=== PATIENT | female | born 1940 | race Caucasian/White ===

== ENCOUNTER 2017-12-05 13:56 | Outpatient (CLI) | payer MEDICARE | END 2017-12-05 13:57 | disposition home or self-care (01) | LOC: BICULT 13:56 | PROVIDERS: ATTEND Family Medicine | DX: E07.9 Disorder of thyroid, unspecified (principal); E04.1 Nontoxic single thyroid nodule | CPT/HCPCS: 36415; 76536; 80048; 83970; 84436; 84443; 84479 ==

== ENCOUNTER 2018-03-10 11:50 | Inpatient (IN) | payer MEDICARE ==
--- NOTE | 2018-03-10 13:11 | CT ---
CT BRAIN: HISTORY: Fall. Head trauma. COMPARISON: 09/16/2015 TECHNIQUE: Axial images are obtained with brain and bone windows obtained. FINDINGS: CT images of the brain demonstrate interval increasing opacification of the right maxillary sinus. E xtensive mucosal disease is present. No evidence of acute fractures or bony lesions seen. The other paranasal sinuses are well aerated. The brain demonstrates no evidence of masses or lesions. No evidence of calvarial fractures seen. N o evidence of acute hemorrhage is seen. Old area of stroke seen in the right basal ganglion. IMPRESSION: 1. Right increasing maxillary sinus disease. 2. No evidence of acute intracranial pathology or significant trauma seen. POS: [facility]
--- NOTE | 2018-03-10 13:12 | CT ---
CT CERVICAL SPINE: HISTORY: Fall with neck pain. TECHNIQUE: Axial images are obtained with coronal and sagittal reconstructions. FINDINGS: CT images of the cervical spine demonstrate disk space height loss with vacuum disk changes seen at t he C5-C6 level. Moderate bilateral C4-C5 and C5-C6 neural foraminal narrowing is seen, due to uncove rtebral osteophyte encroachment. No evidence of acute cervical spine fracture is seen. Bilateral carotid endarterectomy changes and surgical clips seen. Some heterogeneity is seen in the left thyroid lobe. Correlate with thyroid sonography. The patient had a previous thyroid sonogram on 12/05/2017. IMPRESSION: No evidence of acute cervical spine fracture seen. POS: [facility]
[2018-03-10] MEDS ORDERED: Promethazine HCl 25 MG/ML VIAL ONE (13:14)
[2018-03-10] MEDS ORDERED: Morphine 2 MG/ML SYRINGE ONE ×2 (13:21→15:18)
[2018-03-10] MEDS ORDERED: Ondansetron PF 4 MG/2 ML Vial IV PRN (13:31)
--- NOTE | 2018-03-10 13:37 | RAD ---
AP PELVIS: HISTORY: Fall. Leg pain. FINDINGS: AP view pelvis is obtained and demonstrates a subcapital type left femoral neck fracture. There is s light lateral angulation of the distal fracture fragment. IMPRESSION: Acute left femoral neck fracture. POS: [facility]
--- NOTE | 2018-03-10 13:37 | RAD ---
SINGLE VIEW CHEST: Date: 03/10/18 COMPARISON: 08/07/16. HISTORY: Fall this morning with left leg pain. Preoperative radiograph for left femoral neck fracture. FINDINGS: Single view of the chest shows normal sized cardiomediastinal silhouette. The patient is status post CABG. There is no evidence of consolidation, mass, or pleural effusion. Degenerative changes are seen in the spine. IMPRESSION: No evidence of acute cardiopulmonary disease. POS: [facility]
--- NOTE | 2018-03-10 13:38 | RAD ---
LEFT HIP TWO VIEWS: HISTORY: Fall. TECHNIQUE: AP and lateral views of the left hip are obtained. FINDINGS: Images demonstrate an acute left femoral neck fracture, with slight lateral displacement of the dista l fracture fragment. IMPRESSION: Acute left femoral neck fracture. POS: [facility]
[2018-03-10] MEDS ORDERED: TETANUS AND DIPHTHERIA TOX/PF 0.5 ML DISP.SYRIN IM SCH (13:45)
[2018-03-10] MEDS ORDERED: Communication Order-Pharmacy FS SCH (13:45)
[2018-03-10] MEDS ORDERED: Clindamycin/D5W 900 MG in Premix Bag 1 BAG IVPB SCH (13:45)
[2018-03-10 13:52] LABS: Bilirubin Negative (Negative); Blood, Urine Negative (Negative); Clarity CLEAR (Clear); Glucose, Urine (Dipstick) Negative (Negative); Leukocyte Negative (Negative); Nitrite Negative (Negative); Protein, Urine (Dipstick) Negative (Neg-Trace); Specific Gravity, Urine 1.013 (1.002-1.036)
[2018-03-10 13:57] LABS: #Eosinphils 0.1 thou/uL (0.0-0.7); #Lymphocytes 0.6 thou/uL (1.20-3.40); #Monocytes 0.4 thou/uL (0.11-0.59); #Neutrophils 8.8 thou/uL (1.40-6.50); %Basophils 0.3 % (0.0-1.0); %Eosinophils 0.6 % (0.0-10.0); %Lymphocytes 6.2 % (21.0-51.0); %Monocytes 3.8 % (0.0-10.0); %Neutrophils 89.1 % (42.0-75.0); Hemoglobin 12.8 g/dL (12.0-16.0); Mean Corpuscular HGB CONC 32.8 g/dL (32.0-36.0); Mean Corpuscular Hemoglobin 30.6 pg (27.0-31.0); Mean Corpuscular Volume 93.2 fL (78.0-98.0); Mean Platelet Volume 7.6 fL (7.4-10.4); Platelet Count 178 thou/uL (130-400); RBC Distribution Width 12.7 % (11.5-14.5); Red Blood Cell (RBC) Count 4.19 mill/uL (4.20-5.40); White Blood Cell (WBC) Count 9.8 thou/uL (4.8-10.8)
--- NOTE | 2018-03-10 14:12 | CON ---
DATE OF CONSULTATION: 03/10/2018 REQUESTING PHYSICIAN: Trauma Services. CONSULTING PHYSICIAN: Dr. Hipolito Arambula. REASON FOR CONSULTATION: Left hip fracture. HISTORY OF PRESENT ILLNESS: This is a 77-year-old female, who was in [place], watching promotion of her son to [employer] when she tripped and fell. Fall was mechanical. The patient states that she was going up 2 steps and she felt that her knee gave out. She landed on her left side. She complained of left hip pain. She proceed to stay at the event; however, family pushed her on in a wheelchair before getting in a car and driving back to the [facility] area, so that her care could be provided at her hometown hospital. The patient states the pain is worse upon movement and somewhat relieved by rest as well as pain medication. No numbness or tingling distally. She did complain of some left knee pain. She takes aspirin. No significant loss of consciousness. She was unable to bear weight. PAST MEDICAL HISTORY: Significant for hypertension, coronary artery disease, hyperlipidemia, TIA. PAST SURGICAL HISTORY: Significant for tonsillectomy, bladder lift, coronary artery bypass graft x6 in 2007, cholecystectomy, hysterectomy, bilateral carotid endarterectomy. SOCIAL HISTORY: The patient denies any alcohol or drug use. She is a former smoker. She quit in 2002. She does live at home with her spouse here in the [facility]. FAMILY HISTORY: Reviewed and noncontributory. REVIEW OF SYSTEMS: Conducted and otherwise negative except for as stated above. PHYSICAL EXAMINATION: VITAL SIGNS: Include blood pressure of 186/93, pulse of 97, respiratory rate of 19, and a temperature of 98.1 degrees. GENERAL: The patient is awake and alert. She is mildly uncomfortable secondary to her fall. Family is at bedside. She is pleasant and cooperative with the exam today. She is oriented x3. HEENT: Head is normocephalic and atraumatic. NECK: Supple. CARDIOVASCULAR: Regular rate and rhythm with a 3/5 systolic ejection murmur. LUNGS: Clear to auscultation bilaterally. EXTREMITIES: The left lower extremity is externally rotated. Distal neurovascular status is intact. Skin is intact. DIAGNOSTIC STUDIES: IMAGING STUDIES: Radiographic findings including 2 views of the left hip demonstrate a subcapital femoral neck fracture with slight impaction. These findings were reviewed with Dr. Arambula. ASSESSMENT: Left hip subcapital femoral neck fracture. PLAN: At this point, we will allow the patient to eat today. We did discuss surgical intervention including a left hip hemiarthroplasty for her fracture. Due to her significant cardiac history, we will have Dr. Tejeda or the manager of transportation on-call to see the patient for presurgical clearance. Risks, benefits, and alternatives were discussed with the patient and her today. These include, but are not limited to, bleeding, infection, and neurovascular injury. We will plan to go forward with surgery tomorrow. They are amenable to this plan of care. She will be n.p.o. after midnight. Job ID: [id number]
[2018-03-10 14:22] LABS: ALT (SGPT) 19 U/L (8-55); Albumin 4.2 g/dL (3.4-4.8); Alkaline Phosphatase 74 U/L (40-150); BUN (Urea Nitrogen) 26 mg/dL (9.8-20.1); Bilirubin, Total 0.7 mg/dL (0.2-1.2); Calc. Creatinine Clearance 0 mL/min (70-130); Calcium 10.2 mg/dL (7.8-10.44); Carbon Dioxide 24 mmol/L (23-31); Chloride 102 mmol/L (98-107); Estimated GFR-MDRD 37; Glucose 114 mg/dL (83-110); Sodium 138 mmol/L (136-145)
[2018-03-10 14:51] LABS: AST (SGOT) 22 U/L (5-34); Globulin 3.6 g/dL (2.4-3.5); Potassium 3.6 mmol/L (3.5-5.1); Protein, Total 7.8 g/dL (6.0-8.3)
[2018-03-10 14:53] LABS: Anion Gap 16 mmol/L (10-20)
[2018-03-10 16:24] VITALS: BMI 29.0
[2018-03-10] MEDS ORDERED: Temazepam 15 MG CAP PO PRN (17:07)
[2018-03-10] MEDS: traMADol HCl 50 MG TAB PO PRN (17:24)
--- NOTE | 2018-03-10 17:50 | HP ---
HISTORY OF PRESENT ILLNESS: Ms. Will sustained a fall today in [place] at her son's [employer] promotion. She was having severe left hip pain. However, she wanted to come back to town here for further workup including hospitalization. She is found to have left hip fracture. She notes a moderate amount of pain, but actually feels better now that she is in her room. She denies loss of consciousness. She said she had a swelling to her left forehead that is now improved as well as one to her right knee that feels better now. Denies sensory motor loss to either lower extremity. PAST MEDICAL HISTORY: Includes hypertension, coronary artery disease, hyperlipidemia, peripheral vascular disease. PAST SURGICAL HISTORY: Includes CABG, bilateral carotid artery surgery, tonsillectomy, cholecystectomy. SOCIAL HISTORY: She is a former smoker. It has been 40 years. No alcohol. Lives at home with her here in [facility]. REVIEW OF SYSTEMS: Otherwise negative unless described above. ALLERGIES: TO PENICILLIN AND ACETAMINOPHEN. MEDICATIONS: Taken at home include carvedilol, pravastatin, thyroid, folic acid, Multaq, hydralazine, temazepam, Catapres, nifedipine, colestipol, valsartan, vitamin D, vitamin B, and aspirin 325 a day. REVIEW OF SYSTEMS: A 10-system review of systems is otherwise negative unless described above. PHYSICAL EXAMINATION: VITAL SIGNS: Pulse 102, blood pressure is 181/75, respirations are 18. HEENT: No orofacial, craniofacial trauma. Oropharynx clear. NECK: No lymphadenopathy or pain. CHEST: Clear. HEART: Regular rate and rhythm. No chest trauma. ABDOMEN: Soft, nontender. No abdominal tenderness. Pelvis is stable. EXTREMITIES: No significant lower extremity edema, deformity, or trauma. Peripheral pulses are palpable. LABORATORY DATA: White cell count is 9, hemoglobin 12, platelet count is 178. Sodium 138, potassium 3.6, creatinine 1.38. ASSESSMENT: Left femoral neck fracture. PLAN: 1. ORIF tomorrow. 2. Coronary artery disease. Dr. Tejeda to see today for any further workup for cardiac clearance. The trauma team will follow. Job ID: [id number]
--- NOTE | 2018-03-10 20:18 | CON ---
DATE OF CONSULTATION: REASON FOR CONSULTATION: Preoperative clearance. HISTORY OF PRESENT ILLNESS: Ms. Will is a very pleasant 77-year-old woman, I have seen and managed in the past. Her primary provider is Dr. Nico Velasquez. She had a previous history of CAD, status post bypass surgery x6 in 2002. She last underwent carotid endarterectomy in 2012. Her last stress study that was performed in 2012 was well. She recently was walking upstairs and fell. No syncope or presyncope present. She lost her balance. She broke her left hip. She denies chest pain, pressure, or other associated symptoms. Last echo performed in our office dated April 2017 with an LVEF of 55% to 60%, [id number] MR, moderate AI, and moderate TR present. Right ventricular systolic pressures were elevated. PAST MEDICAL HISTORY: CAD, status post bypass surgery in 2002; carotid disease, status post carotid endarterectomy; hyperlipidemia; hypertension; cholecystectomy; hysterectomy; chronic kidney disease; CVA; tonsillectomy; paroxysmal atrial fibrillation. Last stress test dated 08/08/2016 with no significant areas of ischemia with LVEF of 70%. SOCIAL HISTORY: No current tobacco or alcohol use. HOME MEDICATIONS: Include; 1. Pravastatin. 2. Multaq. 3. Colestid. 4. Carvedilol. 5. B12. 6. Aspirin. 7. Hydralazine. 8. Clonidine. 9. Thyroid. 10. Restoril. 11. Nifedipine. 12. Folic acid. REVIEW OF SYSTEMS: A 10-system review of systems reviewed and is otherwise negative. PHYSICAL EXAMINATION: GENERAL: Patient is a pleasant woman, who is in no acute distress. The patient appears their stated age. VITAL SIGNS: Blood pressure 181/75, pulse 102, temperature 98. NEUROLOGIC: The patient is alert and oriented x3 with no focal neurologic deficits. HEENT: Sclerae without icterus. Mouth has moist mucous membranes with normal pallor. NECK: No JVD. Carotid upstroke brisk. No bruits bilaterally. LUNGS: Clear to auscultation with unlabored respirations. BACK: No scoliosis or kyphosis. CARDIAC: 2/6 systolic ejection murmur. ABDOMEN: Soft, nontender, nondistended. No peritoneal signs present. No hepatosplenomegaly. No abnormal striae. EXTREMITIES: 2+ femoral and 2+ dorsalis pedis pulses. No cyanosis, clubbing, or edema. SKIN: No gross abnormalities. PERTINENT LABORATORY DATA: Hemoglobin 12.8. Creatinine 1.38 with a GFR of 37. IMPRESSION: 1. Preoperative clearance. 2. Coronary artery disease. 3. Status post bypass surgery. 4. Murmur. RECOMMENDATIONS: At this point, Ms. Will is currently on a beta-haja therapy and would continue. She is on 25 mg metoprolol b.i.d. She is also on clonidine and nifedipine for blood pressure management. At this point, we would recommend managing her pulse pressure product aggressively. We will keep her pulse pressure product down. Her last stress test was last year with no ischemia. She does have a history of paroxysmal atrial fibrillation, but appears to be rate controlled. I feel Ms. Will is at low risk for complications. If her LVEF is unchanged with no significant valvular stenosis, would clear for surgery. Job ID: [id number]
[2018-03-10] MEDS: Pravastatin Sodium 40 MG TAB PO SCH (20:31)
[2018-03-10] MEDS: hydrALAZINE 25 MG TAB PO SCH (20:31)
[2018-03-10] MEDS: Fentanyl 100 MCG/2 ML VIAL SLOW IVP PRN ×2 (20:32→23:59)
[2018-03-10] MEDS: Carvedilol 25 MG TAB PO SCH (20:32)
[2018-03-10] MEDS: NIFEdipine XL 60 MG TAB PO SCH (20:32)
[2018-03-11] MEDS: Sodium Chloride 0.9% 1,000 ML IV SCH ×3 (00:11→21:29)
[2018-03-11] MEDS: Fentanyl 100 MCG/2 ML VIAL SLOW IVP PRN ×3 (03:41→09:07)
[2018-03-11 06:54] LABS: #Eosinphils 0.2 thou/uL (0.0-0.7); #Lymphocytes 0.8 thou/uL (1.20-3.40); #Monocytes 0.5 thou/uL (0.11-0.59); #Neutrophils 7.2 thou/uL (1.40-6.50); %Basophils 0.3 % (0.0-1.0); %Eosinophils 2.2 % (0.0-10.0); %Lymphocytes 8.9 % (21.0-51.0); %Monocytes 6.1 % (0.0-10.0); %Neutrophils 82.6 % (42.0-75.0); Hemoglobin 11.2 g/dL (12.0-16.0); Mean Corpuscular HGB CONC 32.3 g/dL (32.0-36.0); Mean Corpuscular Hemoglobin 29.7 pg (27.0-31.0); Mean Platelet Volume 7.4 fL (7.4-10.4); Platelet Count 162 thou/uL (130-400); RBC Distribution Width 12.6 % (11.5-14.5); Red Blood Cell (RBC) Count 3.75 mill/uL (4.20-5.40); White Blood Cell (WBC) Count 8.7 thou/uL (4.8-10.8)
--- NOTE | 2018-03-11 07:09 | PDOC.CTH ---
Cardiology Progress Note - Objective Vital Signs Temp Pulse Resp BP BP Pulse Ox 03/11/18 04:19 98.8 F 88 22 H 143/71 H 93 L 03/11/18 00:06 99.8 F H 89 19 142/66 H 94 L 03/10/18 20:32 94 162/66 H 03/10/18 20:31 94 162/66 H 03/10/18 20:27 98.5 F 94 20 162/66 H 94 L 03/10/18 20:00 94 L Weight 185 lb 3.013 oz 03/10/18 03/11/18 03/12/18 06:59 06:59 06:59 Intake Total 980 Output Total 1300 Balance -320 - Physical Examination General/Neuro: alert & oriented x3, NAD Neck: carotid US brisk, no JVD present Lungs: unlabored respirations Heart: PMI normal, RRR Abdomen: NT/ND, soft Extremities: + femoral B - Labs Result Diagrams: 03/11/18 06:38 03/10/18 13:44 - Assessment/Plan PAF Murmur CAD s/p CABG echo pending If no significant valvular stenosis, proceed with surgery. Pt with stress test performed one yr ago without ischemia.
[2018-03-11 07:14] LABS: ALT (SGPT) 18 U/L (8-55); AST (SGOT) 24 U/L (5-34); Albumin 3.6 g/dL (3.4-4.8); Alkaline Phosphatase 72 U/L (40-150); Anion Gap 12 mmol/L (10-20); BUN (Urea Nitrogen) 20 mg/dL (9.8-20.1); Calc. Creatinine Clearance 50 mL/min (70-130); Carbon Dioxide 28 mmol/L (23-31); Chloride 101 mmol/L (98-107); Estimated GFR-MDRD 41; Globulin 3.2 g/dL (2.4-3.5); Glucose 99 mg/dL (83-110); Potassium 3.2 mmol/L (3.5-5.1); Protein, Total 6.8 g/dL (6.0-8.3); Sodium 138 mmol/L (136-145)
[2018-03-11] MEDS ORDERED: Clopidogrel Bisulfate 75 MG TAB ONE (07:45)
[2018-03-11] MEDS: Carvedilol 25 MG TAB PO SCH ×2 (08:06→21:36)
[2018-03-11] MEDS: traMADol HCl 50 MG TAB PO PRN ×3 (08:07→21:44)
[2018-03-11] MEDS: Dronedarone HCl 400 MG TAB PO SCH ×2 (08:07→18:34)
[2018-03-11] MEDS: Folic Acid 1 MG TAB PO SCH (09:02)
[2018-03-11] MEDS: hydrALAZINE 25 MG TAB PO SCH ×3 (09:03→21:35)
[2018-03-11] MEDS ORDERED: Clindamycin/D5W 900 mg/50 ml Premix Bag ONE (11:08)
[2018-03-11] MEDS ORDERED: Midazolam HCl 2 mg/2 ml Vial ONE (12:18)
[2018-03-11] MEDS ORDERED: Fentanyl 100 MCG/2 ML VIAL ONE ×2 (12:19→16:01)
[2018-03-11] MEDS ORDERED: Dexamethasone 4 mg/ml Vial ONE (12:19)
[2018-03-11] MEDS ORDERED: Phenylephrine HCL 10 MG/ML VIAL ONE (16:04)
[2018-03-11] MEDS ORDERED: Bupivacaine HCl 0.5%/Epinephrine 1:200,000/PF 30 ml Vial ONE (16:21)
[2018-03-11] MEDS ORDERED: Meperidine HCl/PF 25 MG/ML VIAL SLOW IVP PRN (16:56)
[2018-03-11] MEDS ORDERED: PACU-Morphine 4MG/ML VIAL SLOW IVP PRN (16:56)
[2018-03-11] MEDS ORDERED: Promethazine HCl 25 MG/ML VIAL SLOW IVP PRN ×2 (16:56→17:28)
[2018-03-11] MEDS ORDERED: Promethazine HCl 25 MG/ML VIAL IM PRN ×2 (16:56→17:28)
[2018-03-11] MEDS ORDERED: PROPOFOL 200 MG/20 ML VIAL ONE (17:07)
[2018-03-11] MEDS ORDERED: Ondansetron PF 4 MG/2 ML Vial ONE (17:07)
[2018-03-11] MEDS ORDERED: PHENYLEPHRINE-NS 100 MCG/ML 10 ML SYRINGE ONE (17:07)
[2018-03-11] MEDS ORDERED: Lidocaine 1% PF 5 ML VIAL ONE (17:07)
[2018-03-11] MEDS ORDERED: Glycopyrrolate 0.2 MG/ML 5 ML SYRINGE ONE (17:07)
[2018-03-11] MEDS ORDERED: Dexamethasone 20 MG/5 ML VIAL ONE (17:07)
[2018-03-11] MEDS ORDERED: Ondansetron HCl/PF 4 MG/2 ML Vial IVP PRN (17:28)
[2018-03-11] MEDS ORDERED: Morphine Sulfate 2 MG/ML SYRINGE SLOW IVP PRN (17:28)
--- NOTE | 2018-03-11 17:56 | PRG ---
DATE OF SERVICE: 03/11/2018 SUBJECTIVE: The patient is resting comfortably in bed this morning. The patient only complains of continued left hip pain, though she reports moderate control of her pain. No other complaints at this time. OBJECTIVE: VITAL SIGNS: Blood pressure 134/65, pulse 84, respirations 18, O2 saturation 91 on room air, temperature 98.6. GENERAL: Alert and awake. No acute distress. HEENT: EOMI. Moist mucosal membranes. NECK: Trachea midline. PULMONARY: Equal chest rise. No cyanosis. CARDIOVASCULAR: Regular rate. No edema. NEUROLOGIC: No acute focal deficits. LABORATORY FINDINGS: White blood cell count 8.7, hemoglobin 11.2, hematocrit 34.5. Sodium 138, potassium 3.2, BUN 20, creatinine 1.26. ASSESSMENT: Left femoral neck fracture. PLAN: Cardiology plans for echocardiography today and anticipates cardiac clearance for ORIF today. We will plan for surgery and postop support including adequate pain control, etc. This patient was seen and evaluated by Dr. Solis on morning rounds. The patient verbalized understanding and agreement with plan. Job ID: [id number]
--- NOTE | 2018-03-11 18:59 | RAD ---
AP PELVIS: 03/11/18 HISTORY: Postop. Pelvic ring is intact. The bones are demineralized. Postoperative changes of the left hip are noted w ith left hip prosthesis present. The femoral stem is not entirely visualized on this exam. IMPRESSION: 1. Arthritic changes of the lower lumbar spine. 2. Atherosclerosis. 3. Placement of a left hip prosthesis incompletely visualized on this single view. POS: [facility]
--- NOTE | 2018-03-11 19:00 | RAD ---
LEFT HIP ONE VIEW LATERAL: 03/11/18 HISTORY: Postop. A total hip prosthesis is in good position. No signs of fracture. IMPRESSION: Placement of a total hip prosthesis. POS: [facility]
[2018-03-11] MEDS: Clindamycin/D5W 900 MG in Premix Bag 1 BAG IVPB SCH (21:00)
[2018-03-11] MEDS ORDERED: Aspirin 81 mg Enteric Coated Tablet PO SCH (21:00)
[2018-03-11] MEDS: NIFEdipine XL 60 MG TAB PO SCH (21:31)
[2018-03-11] MEDS: Enoxaparin Sodium 40 MG/0.4 ML SYRINGE SC SCH (21:36)
[2018-03-11] MEDS: Pravastatin Sodium 40 MG TAB PO SCH (21:36)
--- NOTE | 2018-03-12 01:09 | OP ---
DATE OF PROCEDURE: 03/11/2018 PROCEDURE PERFORMED: Left hip hemiarthroplasty. PREOPERATIVE DIAGNOSIS: Left femoral neck fracture. POSTOPERATIVE DIAGNOSIS: Left femoral neck fracture. COMPLICATIONS: None. ESTIMATED BLOOD LOSS: 150 mL. VEGETABLE HARVEST MACHINE OPERATOR: Michelle Oviedo PA-C IMPLANTS: DePuy Butts Basic press-fit stem size 6, bipolar head size 46 mm; +5, 28 mm femoral head. INDICATIONS FOR PROCEDURE: Ms. Will is a 77-year-old female who fell. She fractured her left femoral neck. She had a displaced fracture that was amenable to hemiarthroplasty. We reviewed risk and benefits. We reviewed surgical options. She elected to proceed. DESCRIPTION OF PROCEDURE: Ms. Will was identified in the preoperative holding area. Her correct extremity was marked. She was carried to the operating room. She was positioned supine. General anesthesia was induced. A multidisciplinary time-out was performed. The left lower extremity was prepped and draped in sterile fashion. We began the procedure with posterior approach to the hip. We dissected down through the subcutaneous tissues to the fascia, which was opened. We exposed the underlying short external rotators. We subperiosteally divided the piriformis from the proximal femur. We performed a capsulotomy as well. We exposed the underlying femoral neck fracture. We removed the femoral head. At this point, we performed a new osteotomy with an oscillating saw. We then prepped the femur with a rasp, followed by a broach up to a size 6; this gave a stable fit. We trialed off this. A +5 femoral head was appropriate for length. At this point, we removed trial components. We impacted our final stem and bipolar shell with femoral head. We reduced the hip once more, checked stability, it was very stable throughout our arc of motion. At this point, after thorough irrigation, we closed the capsule as well as the piriformis tendon with #5 Ethibond suture through drill holes in the trochanter. We then closed the remaining tissues with #2 Vicryl suture, 2-0 Vicryl suture and yuli for the skin, and a sterile dressing was applied. Job ID: [id number]
[2018-03-12] MEDS: Clindamycin/D5W 900 MG in Premix Bag 1 BAG IVPB SCH (05:00)
[2018-03-12] MEDS ORDERED: traMADol HCl 50 MG TAB PO PRN (08:19)
[2018-03-12] MEDS ORDERED: Ketorolac Tromethamine 30 MG/ML VIAL IVP PRN (08:19)
[2018-03-12] MEDS: Dronedarone HCl 400 MG TAB PO SCH ×2 (08:42→17:27)
[2018-03-12] MEDS: Folic Acid 1 MG TAB PO SCH (08:42)
[2018-03-12] MEDS: Carvedilol 25 MG TAB PO SCH ×2 (08:42→19:49)
[2018-03-12] MEDS: hydrALAZINE 25 MG TAB PO SCH ×3 (08:43→19:50)
[2018-03-12] MEDS: traMADol HCl 50 MG TAB PO PRN ×2 (09:31→19:49)
--- NOTE | 2018-03-12 11:52 | PRG ---
DATE OF SERVICE: 03/12/2018 SUBJECTIVE: The patient is resting comfortably in bed this morning. Reports good pain control and has no concerns or complaints at this time. OBJECTIVE: VITAL SIGNS: Blood pressure is 99/63, pulse is 70, respirations 18, pulse ox is 93 on room air, and temperature is 97.8. GENERAL: Alert and awake, no acute distress. HEENT: EOMI. Moist mucosal membranes. NECK: Trachea midline. PULMONARY: Equal chest rise. No cyanosis. Clear to auscultation bilaterally. CARDIOVASCULAR: Regular rate and rhythm. No edema. NEUROLOGIC: No focal deficits. LABORATORY FINDINGS: There are no new laboratory data today. ASSESSMENT: Left femoral neck fracture status post hemiarthroplasty day 1. PLAN: We will continue with pain control and to have patient working with physical therapy and occupational therapy. We will put in for rehab screen today and start for discharge planning. We will also start bowel regimen for constipation prophylaxis. Job ID: [id number]
[2018-03-12] MEDS: Sodium Chloride 0.9% 1,000 ML IV SCH (15:02)
[2018-03-12] MEDS: Calcium Carbonate 500 MG ChewTAB PO PRN (17:27)
[2018-03-12] MEDS: Enoxaparin Sodium 40 MG/0.4 ML SYRINGE SC SCH (19:47)
[2018-03-12] MEDS: NIFEdipine XL 60 MG TAB PO SCH (19:47)
[2018-03-12] MEDS: Pravastatin Sodium 40 MG TAB PO SCH (19:48)
[2018-03-12] MEDS: Famotidine 20 MG TAB PO SCH (19:48)
[2018-03-12] MEDS: Senokot 8.6 MG TAB PO SCH (19:48)
[2018-03-13] MEDS: Sodium Chloride 0.9% 1,000 ML IV SCH (06:33)
[2018-03-13] MEDS: Calcium Carbonate 500 MG ChewTAB PO PRN (06:52)
[2018-03-13] MEDS: Folic Acid 1 MG TAB PO SCH (08:49)
[2018-03-13] MEDS: Carvedilol 25 MG TAB PO SCH (08:49)
[2018-03-13] MEDS: Senokot 8.6 MG TAB PO SCH ×2 (08:49→22:04)
[2018-03-13] MEDS: Dronedarone HCl 400 MG TAB PO SCH ×2 (08:49→16:46)
[2018-03-13] MEDS: Polyethylene Glycol 3350 17 GM Packet PO SCH (08:49)
[2018-03-13] MEDS: Famotidine 20 MG TAB PO SCH ×2 (08:49→21:29)
[2018-03-13] MEDS: hydrALAZINE 25 MG TAB PO SCH ×2 (08:53→15:49)
[2018-03-13] MEDS ORDERED: traMADol HCl 50 MG TAB PO PRN (09:16)
[2018-03-13 09:44] LABS: #Lymphocytes 0.7 thou/uL (1.20-3.40); #Monocytes 0.8 thou/uL (0.11-0.59); #Neutrophils 9.1 thou/uL (1.40-6.50); %Basophils 0.2 % (0.0-1.0); %Eosinophils 0.3 % (0.0-10.0); %Lymphocytes 6.5 % (21.0-51.0); %Monocytes 7.5 % (0.0-10.0); %Neutrophils 85.4 % (42.0-75.0); Hemoglobin 9.4 g/dL (12.0-16.0); Mean Corpuscular HGB CONC 32.4 g/dL (32.0-36.0); Mean Corpuscular Hemoglobin 30.1 pg (27.0-31.0); Mean Corpuscular Volume 92.9 fL (78.0-98.0); Mean Platelet Volume 8.1 fL (7.4-10.4); Platelet Count 178 thou/uL (130-400); RBC Distribution Width 12.6 % (11.5-14.5); Red Blood Cell (RBC) Count 3.13 mill/uL (4.20-5.40); White Blood Cell (WBC) Count 10.6 thou/uL (4.8-10.8)
[2018-03-13 10:02] LABS: Anion Gap 12 mmol/L (10-20); BUN (Urea Nitrogen) 36 mg/dL (9.8-20.1); Calc. Creatinine Clearance 55 mL/min (70-130); Calcium 8.3 mg/dL (7.8-10.44); Carbon Dioxide 25 mmol/L (23-31); Chloride 99 mmol/L (98-107); Estimated GFR-MDRD 47; Glucose 140 mg/dL (83-110); Magnesium 1.5 mg/dL (1.6-2.6); Potassium 3.4 mmol/L (3.5-5.1); Sodium 133 mmol/L (136-145)
[2018-03-13 10:22] LABS: Phosphorus 1.9 mg/dL (2.3-4.7)
[2018-03-13] MEDS: traMADol HCl 50 MG TAB PO SCH ×2 (11:12→17:47)
[2018-03-13] MEDS ORDERED: Magnesium Sulfate 3 GM in Sodium Chloride 0.9% 100 ML IVPB SCH (12:00)
[2018-03-13] MEDS ORDERED: Furosemide 20 MG/2 ML VIAL SLOW IVP SCH (12:00)
[2018-03-13] MEDS ORDERED: Potassium Phosphate 30 MMOL in Sodium Chloride 0.9% 500 ML IVPB SCH (12:00)
[2018-03-13] MEDS: Ibuprofen 600 MG TAB PO SCH ×2 (13:17→21:29)
[2018-03-13] MEDS: Pravastatin Sodium 40 MG TAB PO SCH (21:29)
[2018-03-13] MEDS: Enoxaparin Sodium 40 MG/0.4 ML SYRINGE SC SCH (21:29)
[2018-03-14] MEDS: traMADol HCl 50 MG TAB PO SCH ×4 (00:16→17:20)
[2018-03-14] MEDS: Ibuprofen 600 MG TAB PO SCH ×3 (05:50→20:45)
[2018-03-14 07:11] LABS: Anion Gap 10 mmol/L (10-20); BUN (Urea Nitrogen) 38 mg/dL (9.8-20.1); Calc. Creatinine Clearance 51 mL/min (70-130); Calcium 7.9 mg/dL (7.8-10.44); Carbon Dioxide 29 mmol/L (23-31); Chloride 103 mmol/L (98-107); Estimated GFR-MDRD 42; Glucose 91 mg/dL (83-110); Magnesium 2.3 mg/dL (1.6-2.6); Phosphorus 3.5 mg/dL (2.3-4.7); Potassium 3.9 mmol/L (3.5-5.1); Sodium 138 mmol/L (136-145)
[2018-03-14] MEDS ORDERED: cloNIDine 0.2mg/24 Hour PATCH TD SCH (09:00)
[2018-03-14] MEDS: Famotidine 20 MG TAB PO SCH ×2 (09:56→20:45)
[2018-03-14] MEDS: Carvedilol 6.25 MG TAB PO SCH ×2 (09:57→20:45)
[2018-03-14] MEDS: Folic Acid 1 MG TAB PO SCH (09:57)
[2018-03-14] MEDS: Dronedarone HCl 400 MG TAB PO SCH ×2 (09:57→17:19)
[2018-03-14] MEDS: Senokot 8.6 MG TAB PO SCH ×2 (09:58→20:42)
[2018-03-14] MEDS: Polyethylene Glycol 3350 17 GM Packet PO SCH (09:58)
--- NOTE | 2018-03-14 12:27 | EKG ---
Test Reason : Blood Pressure : / mmHG Vent. Rate : 097 BPM Atrial Rate : 097 BPM P-R Int : 204 ms QRS Dur : 120 ms QT Int : 376 ms P-R-T Axes : 071 081 073 degrees QTc Int : 477 ms Normal sinus rhythm Non-specific intra-ventricular conduction delay Nonspecific ST abnormality Abnormal ECG Confirmed by KATELYN ZAMORANO ([id number]), desk editor ROHITH BARAJAS ([id number]) on 03/14/2018 12:27:18 PM Referred By: Confirmed By:KATELYN ZAMORANO
[2018-03-14] MEDS: Enoxaparin Sodium 40 MG/0.4 ML SYRINGE SC SCH (20:45)
[2018-03-14] MEDS: Pravastatin Sodium 40 MG TAB PO SCH (20:45)
--- NOTE | 2018-03-14 20:50 | PRG ---
DATE OF SERVICE: 03/14/2018 SUBJECTIVE: 77-year-old female, status post ground-level fall, postop day 3, left femoral neck fracture. The patient is resting comfortably. States she feels much better than yesterday. There were no overnight events. Reports she had a normal bowel movement this morning. States pain is under control. The patient continues to use her incentive spirometer. Blood pressure has been well controlled overnight. OBJECTIVE: VITAL SIGNS: Temperature 97.9, pulse 63, respirations 15, O2 sat 95% on room air, blood pressure 131/68. LABORATORY DATA: Sodium 138, potassium 3.9, chloride 102, CO2 of 29. BUN 38, creatinine 1.23, glucose 91, calcium 7.9, phosphorous 3.5, magnesium 2.3. ASSESSMENT: 1. Ground-level fall. 2. Left femoral neck fracture, status post hemiarthroplasty, day 3. 3. Acute traumatic pain. PLAN: Continue pain control. Continue physical therapy and occupational therapy. We will cut back on her bowel regimen, as the patient had severe loose stools yesterday. Continue incentive spirometer. Pending placement at the [facility]; tentatively will be placed on Friday. This patient has been discussed with the attending surgeon. Job ID: [id number]
[2018-03-15] MEDS: traMADol HCl 50 MG TAB PO SCH ×5 (00:44→23:34)
[2018-03-15] MEDS: Ibuprofen 600 MG TAB PO SCH ×3 (06:30→21:41)
[2018-03-15] MEDS: Dronedarone HCl 400 MG TAB PO SCH ×2 (08:00→16:28)
[2018-03-15] MEDS: Folic Acid 1 MG TAB PO SCH (08:00)
[2018-03-15] MEDS: Carvedilol 6.25 MG TAB PO SCH ×2 (08:01→20:19)
[2018-03-15] MEDS: Aspirin 325 mg Enteric Coated Tablet PO SCH (08:01)
[2018-03-15] MEDS: Famotidine 20 MG TAB PO SCH ×2 (08:01→20:18)
[2018-03-15] MEDS: Febuxostat 40 MG TAB PO SCH (08:02)
[2018-03-15] MEDS: Polyethylene Glycol 3350 17 GM Packet PO SCH (08:03)
[2018-03-15] MEDS: Senokot 8.6 MG TAB PO SCH ×2 (08:03→20:18)
--- NOTE | 2018-03-15 17:18 | PRG ---
DATE OF SERVICE: 03/15/2018 SUBJECTIVE: This is a 77-year-old female, status post ground level fall, postop day #4, repair of left femoral neck fracture. The patient is resting comfortably at this time. The patient reports she completed physical therapy today and walked approximately 250 feet. There were no overnight events. She continues to have normal bowel movements. Pain has been under control at this time. She continues to use her incentive spirometer. Blood pressure has been on the high side overnight. OBJECTIVE: VITAL SIGNS: Blood pressure 164/70, temperature 98.4, pulse 74, SpO2 96% on room air, respirations 16. GENERAL: The patient is awake, alert, in no distress. CARDIOVASCULAR: The patient with regular rate and rhythm. No murmurs. RESPIRATORY: Chest is symmetrical. Respirations even and unlabored. No cyanosis. ABDOMEN: Soft, nontender. MUSCULOSKELETAL: The patient has good range of motion. No swelling. The patient with normal gait. NEUROLOGIC: No neuro deficits. LABORATORY DATA: There are no labs to review today. ASSESSMENT AND PLAN: 1. Ground level fall. 2. Left femoral neck fracture, status post hemiarthroplasty postop day 4. 3. Acute traumatic pain. 4. History of hypertension. PLAN: Plan is to continue pain control. Continue physical therapy. Continue incentive spirometer use. We will increase patient's home Coreg to 12.5 mg b.i.d. since blood pressure is running on the elevated side. We will restart her home Procardia if needed. Plan is for patient to be discharged to the [facility] tomorrow. This patient has been discussed with the attending surgeon. Job ID: [id number] [facility]
[2018-03-15] MEDS: Enoxaparin Sodium 40 MG/0.4 ML SYRINGE SC SCH (20:17)
[2018-03-15] MEDS: Pravastatin Sodium 40 MG TAB PO SCH (20:19)
--- NOTE | 2018-03-15 21:16 | PRG ---
DATE OF SERVICE: 03/13/2018 SUBJECTIVE: The patient is postop day #2, status post ground-level fall with a left hip fracture. The patient's pain is under control at this time and she does not have any complaints other than not having a bowel movement. She is resting comfortably at this time. OBJECTIVE: VITAL SIGNS: Blood pressure 132/70, pulse 78, respirations 16, O2 sat 93% on 2 L nasal cannula, and temperature 98.1. GENERAL: The patient is alert, in no distress. . RESPIRATORY: No use of accessory muscle. Respirations even and unlabored. No cyanosis. CARDIOVASCULAR: No edema to extremities. No murmurs. Heart rate regular. EXTREMITIES: The patient moves all extremities. The patient has normal strength and tone. NEUROLOGIC: No focal deficits. LABORATORY DATA: White blood count 10.6, RBC 3.13, hemoglobin 9.4, hematocrit 29.1. Sodium 133, potassium 3.4, BUN 36, creatinine 1.13, glucose 140, phosphorous 1.9, magnesium 1.5. ASSESSMENT: 1. Left femoral neck fracture, status post hemiarthroplasty, status post day 2 ground-level fall. 2. History of coronary artery disease. 3. History of Hypertension. 4. Acute traumatic pain. PLAN: We will schedule Ultram, discontinue fentanyl, and stop the Toradol. Discontinue IV fluids and saline lock. The patient will be placed on DVT prophylaxis with Lovenox daily. We will continue PT. We will add lactulose since the patient has not had a bowel movement. The patient has been approved for detention, but due to abnormal electrolytes, we will keep the patient another night. We will replace potassium, phosphorus, and magnesium and repeat labs in am. This patient was discussed with the attendant surgeon. ADDENDUM: I was called by the patient's nurse who reported the patient became dizzy and hypotensive during her physical therapy this afternoon. It was noted that the patient was placed on her full dose of Coreg 25 mg b.i.d. yesterday. The patient had positive orthostatic hypotension. A cortisol level was obtained with the reading of 19. Nurse reports once the patient got back in bed, her blood pressure increased, but she did have the drop in blood pressure when she did orthostatic vitals, sitting position of 86/43 with dizziness, and chose not to do a standing blood pressure. Earlier today, the patient was found to be volume overloaded, so Lasix 20 mg was given IV. Per nurse, she was unable to measure urine output as the patient had loose stools and urine at the same time at the bedside commode. Dr. Tejeda, Cardiology, evaluated this patient on the 5th prior to surgery. He was contacted this evening and notified of the hypotension and with her history of atrial fibrillation and multiple antihypertensive medications, this was discussed with him. He recommended holding all of the blood pressure medications this evening. Okay to continue the Multaq. Recommended restarting the Coreg tomorrow with a dose of 6.25 b.i.d. Recommended if still having problems with the dose change, then can consult Dr. Rendon tomorrow. Was also notified of the clonidine patch that was still on the patient which was removed and discontinued from the orders. Plan is to repeat labs in the morning and evaluate the patient's blood pressure and urine output. The patient was also encouraged to use her incentive spirometer. The patient was discussed with the attendant surgeon. Job ID: [id number] [facility]
[2018-03-16] MEDS: Ibuprofen 600 MG TAB PO SCH ×2 (05:43→13:06)
[2018-03-16] MEDS: traMADol HCl 50 MG TAB PO SCH ×2 (05:44→11:37)
[2018-03-16] MEDS ORDERED: hydrALAZINE 25 MG TAB PO SCH ×2 (06:45→15:00)
[2018-03-16] MEDS: Dronedarone HCl 400 MG TAB PO SCH (08:36)
[2018-03-16] MEDS: Aspirin 325 mg Enteric Coated Tablet PO SCH (08:37)
[2018-03-16] MEDS: Folic Acid 1 MG TAB PO SCH (08:37)
[2018-03-16] MEDS: Carvedilol 6.25 MG TAB PO SCH (08:37)
[2018-03-16] MEDS: Famotidine 20 MG TAB PO SCH (08:37)
[2018-03-16] MEDS: Febuxostat 40 MG TAB PO SCH (08:37)
[2018-03-16] MEDS: Polyethylene Glycol 3350 17 GM Packet PO SCH (08:40)
[2018-03-16] MEDS: Senokot 8.6 MG TAB PO SCH (08:40)
[2018-03-16 11:12] VITALS: TEMP 98
[2018-03-16 14:34] VITALS: BP 126/73
--- NOTE | 2018-03-16 16:36 | DIS ---
DATE OF ADMISSION: 03/10/2018 DATE OF DISCHARGE: 03/16/2018 PRIMARY CARE PHYSICIAN: Nico Velasquez MD RESIDENT: Boo Dhaliwal MD ADMITTING ATTENDING: Anselmo Solis MD DISCHARGE ATTENDING: Brandon Jimenes MD CONSULTS: 1. Orthopedic Surgery, Dr. Kathleen. 2. Cardiology, Dr. Tejeda. PROCEDURES: 1. On 03/10/2018, pelvis x-ray, impression, acute left femoral neck fracture. 2. On 03/10/2018, hip x-ray, impression, acute left femoral neck fracture. 3. On 03/10/2018, brain CT, impression, no evidence of acute intracranial pathology or significant trauma seen, right increasing maxillary sinus disease. 4. On 03/10/2018, cervical spine CT, impression, no evidence of acute cervical spine fracture is seen. 5. On 03/10/2018, chest x-ray, impression, no evidence of acute cardiopulmonary disease. 6. On 03/11/2018, hip x-ray, impression, placement of total hip prosthesis. 7. On 03/11/2018, pelvis x-ray, impression, arthritic changes of lower lumbar spine, atherosclerosis, placement of left hip prosthesis incompletely visualized on this single view. 8. On 03/11/2018, left hip hemiarthroplasty. PRIMARY DIAGNOSIS: Left hip fracture. SECONDARY DIAGNOSES: Hypertension, coronary artery disease, hyperlipidemia, and peripheral vascular disease. DISCHARGE MEDICATIONS: 1. Carvedilol 25 mg p.o. b.i.d. 2. [place] Thyroid 90 mg p.o. daily. 3. Pravastatin 40 mg p.o. h.s. 4. Febuxostat 40 mg p.o. daily. 5. Dronedarone 400 mg p.o. b.i.d. 6. Folic acid 1 mg p.o. daily. 7. Temazepam 15 mg p.o. h.s. p.r.n. resume at home. 8. Colestipol 1 g p.o. daily. 9. Hydralazine 100 mg p.o. t.i.d. 10. Clonidine 0.2 mg daily q.7 days. 11. Nifedipine 60 mg p.o. h.s. 12. Vitamin D 5000 units p.o. daily. 13. Vitamin B complex 1 tablet p.o. daily. 14. Aspirin 325 mg p.o. daily. 15. Famotidine 20 mg p.o. b.i.d. 16. Ibuprofen 600 mg p.o. q.8 hours. 17. MiraLAX 17 g packet 17 g p.o. daily. 18. Senokot 1 tablet p.o. b.i.d. 19. Tramadol 50 mg p.o. q.6 hours p.r.n. DISCONTINUED MEDICATIONS: None. HISTORY OF PRESENT ILLNESS/HOSPITAL COURSE: This is a 77-year-old female, who presented to the hospital after a fall. On presentation, the patient denied loss of consciousness. She was not found to have any sort of neurological deficits. The patient reported history of coronary artery disease and the plans were set for open reduction and internal fixation of found left hip fracture. The patient required cardiac clearance for surgery first. So, Cardiology was consulted. The patient received clearance from Cardiology and plans were set for ORIF. The patient tolerated surgery well and had uncomplicated postoperative course showing good pain control with ibuprofen, Tylenol, and tramadol p.r.n. The patient tolerated p.o. diet and had positive bowel movements. The patient was deemed stable for discharge and all other chronic issues were managed with home medications. On the day of discharge, the patient was seen and evaluated by Dr. Jimenes. Had stable vital signs and was safe for discharge. DISPOSITION: Stable. DISCHARGE INSTRUCTIONS: LOCATION: To [facility]. DIET: Heart healthy, low-sodium. ACTIVITY: Per Orthopedic recommendations. FOLLOWUP: Follow up with Dr. Valle, Orthopedic Surgery in [address] Velasquez, primary care provider in 10 days. Job ID: [id number]
== END 2018-03-16 15:30 | DRG 470 ==
LOC: ERS 11:50 → SJJU 12:58
PROVIDERS: ADMIT Surgery; ATTEND Surgery
PROC: 0SRS0JA Replacement of Left Hip Joint, Femoral Surface with Synthetic Substitute, Uncemented, Open Approach (ICD-10-PCS; principal; 2018-03-11)
DX: S72.012A Unspecified intracapsular fracture of left femur, initial encounter for closed fracture (principal); I10 Essential (primary) hypertension; I25.10 Atherosclerotic heart disease of native coronary artery without angina pectoris; Z95.1 Presence of aortocoronary bypass graft; E78.5 Hyperlipidemia, unspecified; I73.9 Peripheral vascular disease, unspecified; G89.11 Acute pain due to trauma; I48.0 Paroxysmal atrial fibrillation; E87.70 Fluid overload, unspecified; I95.1 Orthostatic hypotension; Z87.891 Personal history of nicotine dependence; Z88.6 Allergy status to analgesic agent; Z88.0 Allergy status to penicillin; Z79.82 Long term (current) use of aspirin; Z79.899 Other long term (current) drug therapy; W01.0XXA Fall on same level from slipping, tripping and stumbling without subsequent striking against object, initial encounter
CPT/HCPCS: 36415; 51702; 70450; 71045; 72125; 72170; 80048; 80053; 81003; 82533; 83735; 84100; 85025; 87086; 93005; 93306; 96374; 96375; 96376; G8978-GP-CL; G8978-GP-CM; G8979-GP-CJ; G8979-GP-CK; G8987-GO-CL; G8988-GO-CJ; J0670; J1100; J1650; J1940; J2001; J2250; J2270; J2370; J2405; J2550; J2704; J3010; J3475; J3490; J7050

== ENCOUNTER 2019-01-28 14:12 | Outpatient (CLI) | payer MEDICARE ==
--- NOTE | 2019-01-28 15:51 | ULT ---
THYROID ULTRASOUND: 01/28/19 COMPARISON: 12/05/17. HISTORY: Nontoxic goiter. TECHNIQUE: Multiplanar castillo scale sonographic imaging of the thyroid gland obtained. FINDINGS: The isthmus measures 4 mm in AP dimension. The right lobe of the thyroid gland measures 1.7 x 3.1 x 1.4 cm. The left lobe measures 2.1 x 0.8 x 1.1 cm. There is a solitary complex solid and cystic nodule within the inferior aspect of the left lobe of th e thyroid gland. This nodule measures 2.2 x 1.9 x 1.5 cm, and thus appears to have decreased in size in comparison to the prior study at which time it measured 3.0 x 2.5 x 1.9 cm. On today's examination it is more cystic than on the prior examination, demonstrating a central 1 cm cystic component with a rind of surrounding soft tissue density. However, the lesion does appear taller than wide. Based on TI-RADS classification, this is thus a TR4 lesion. IMPRESSION: Solid and cystic dominant nodule within the left lobe of the thyroid gland. This is a TI-RADS categor y 4 lesion - moderately suspicious. Thus, fine needle aspiration is advised as the lesion is greater than 1.5 cm (unless the patient has undergone prior biopsy of this nodule). POS: OFF
== END 2019-01-28 14:13 | disposition home or self-care (01) ==
LOC: BICULT 14:12
PROVIDERS: ATTEND Otolaryngology Plastic Surgery within the Head & Neck
DX: E04.1 Nontoxic single thyroid nodule (principal)
CPT/HCPCS: 76536

== ENCOUNTER 2019-09-14 18:32 | Observation (INO) | payer MEDICARE, OTHER ==
[~2019-09-14 18:32] MED LIST: Iopamidol-370 76% 500 ML 1 ML ONE
[2019-09-14] MEDS ORDERED: Nitroglycerin 2% Ointment 1 INCH/1 GM Packet ONE (18:50)
[2019-09-14 19:31] LABS: #Basophils 0.1 thou/uL (0.0-0.2); #Eosinphils 0.1 thou/uL (0.0-0.7); #Monocytes 0.5 thou/uL (0.11-0.59); #Neutrophils 7.2 thou/uL (1.40-6.50); %Basophils 0.8 % (0.0-1.0); %Eosinophils 1.4 % (0.0-10.0); %Lymphocytes 10.9 % (21.0-51.0); %Monocytes 5.9 % (0.0-10.0); Hemoglobin 12.1 g/dL (12.0-16.0); Mean Corpuscular HGB CONC 32.4 g/dL (32.0-36.0); Mean Corpuscular Hemoglobin 30.8 pg (27.0-31.0); Mean Platelet Volume 9.1 fL (7.4-10.4); Platelet Count 168 thou/uL (130-400); RBC Distribution Width 13.4 % (11.5-14.5); Red Blood Cell (RBC) Count 3.92 mill/uL (4.20-5.40); White Blood Cell (WBC) Count 8.8 thou/uL (4.8-10.8)
[2019-09-14 19:51] LABS: Albumin 4.1 g/dL (3.4-4.8); Alkaline Phosphatase 84 U/L (40-110); Anion Gap 16 mmol/L (10-20); Bilirubin, Total 0.4 mg/dL (0.2-1.2); Calc. Creatinine Clearance 0 mL/min (70-130); Calcium 9.2 mg/dL (7.8-10.44); Carbon Dioxide 24 mmol/L (23-31); Chloride 102 mmol/L (98-107); Estimated GFR-MDRD 32; Globulin 3.2 g/dL (2.4-3.5); Glucose 119 mg/dL (83-110); Potassium 3.9 mmol/L (3.5-5.1); Protein, Total 7.3 g/dL (6.0-8.3); Sodium 138 mmol/L (136-145)
[2019-09-14 19:52] LABS: BUN (Urea Nitrogen) 24 mg/dL (9.8-20.1)
[2019-09-14 19:53] LABS: AST (SGOT) 18 U/L (5-34)
[2019-09-14 19:54] LABS: ALT (SGPT) 14 U/L (8-55); Lipase 38 U/L (8-78)
[2019-09-14 20:02] LABS: CK (CPK) 67 U/L (29-168)
--- NOTE | 2019-09-14 20:05 | RAD ---
PORTABLE CHEST ONE VIEW: 09/14/19 at 7:15 p.m. HISTORY: Chest pain, shortness of breath, nausea. COMPARISON: 03/10/18. There are changes of median sternotomy. The heart size is normal. The aorta is tortuous. The lungs ar e expanded without focal areas of consolidation, pneumothoraces, or pleural effusions. IMPRESSION: No radiographic evidence of acute cardiopulmonary process. POS: H
--- NOTE | 2019-09-14 22:04 | PDOC.FPRHP ---
- History of Present Illness Chief Complaint: Chest Pain, Leg Pain, Diarrhea History of Present Illness: 79 yo F w/ pmh of CAD, HTN, Hypothyroidism, CKD (only one kidney), and Hx of CVA comes in w/ complaints of Chest pain and diarrhea today. Pt reports chest pain started a few days ago. Pt reports having 6 episodes of watery diarrhea today. Denies anything new she ate. Denies any travel. Deneis any recent sick contacts. Pt reports couple days of swelling in legs, more in left than right. . Pt reports some burning pain in her legs. Reports this has been going on for awhile. Says it starts around 3 or 4 o clock. Went and saw neurologist and reports hasn't really helped. Reports having chest tightness for last few days. 2-3 minutes. Reports has to get up and move around and pain will go away. Pt came in because she just didn't feel right. Reports having chills. Denies any fevere. Reports some chills Reports 6 episodes of diarrhea. Pt reports getting nauseated. No blood in stool. Pt denies any fever or chills. denies any cough. Denies any headaches or vision changes. Denies any lightheadness or dizziness. Pt reports leg swelling and burning pain more of a chronic problem and recently was started on gabapentin for. - Allergies/Adverse Reactions Allergies Allergy/AdvReac Type Severity Reaction Status Date / Time Penicillins Allergy Intermediate HIVES AND Verified 03/10/18 16:35 SWELLING acetaminophen Allergy Mild ITCHING Verified 03/10/18 16:35 [From Tylenol Severe Allergy] - Home Medications Medication Instructions Recorded Confirmed Type Carvedilol 25 mg PO BID 10/30/12 09/14/19 History Pravastatin Sodium [Pravachol] 40 mg PO HS 10/30/12 09/14/19 History Thyroid [[place] Thyroid] 90 mg PO DAILY 10/30/12 09/14/19 History Dronedarone HCl [Multaq] 400 mg PO BID-WM 06/21/15 09/14/19 History Temazepam [Restoril] 15 mg PO HS PRN 11/02/15 09/14/19 History hydrALAZINE [Apresoline] 100 mg PO TID tab 04/07/16 09/14/19 Rx Aspirin [Aspirin EC] 325 mg PO DAILY 08/07/16 09/14/19 History B12/Levomefolate Calcium/B-6 1 tablet PO DAILY 08/07/16 09/14/19 History [Levomefolate/Pyridoxine/Cyanocobalamin] Cholecalciferol (Vitamin D3) 5,000 unit PO DAILY 08/07/16 09/14/19 History [Vitamin D] NIFEdipine [Nifedipine ER] 30 mg PO HS 08/07/16 09/14/19 History cloNIDine [cloNIDine Patch] 0.2 mg TD Q7DAYS 08/07/16 09/14/19 History Amitriptyline HCl [Elavil] 50 mg PO HS 09/14/19 09/14/19 History Calcitriol 0.25 mcg PO DAILY 09/14/19 09/15/19 History Gabapentin [Neurontin] 100 mg PO BID 09/14/19 09/14/19 History Sennosides [Senokot] 1 tab PO DAILY 09/15/19 09/14/19 History Comments: The below med list was taken from patients medications she had with her. the below med list is the current meds she is taking. clonidine .2/24 hr 1 patch every week. carvediol 25 mg BID Vitamin D3 Suhail [employer] thyroid 90 mg daily nifidipine 30 mg ER Amitriptyline 25 mg Temezapam 15 mg nightly calcitriol .2mg once Dronedarone 400 mg at nigh Hydralazine 100 mg TID Gabapentin 100 mg BID - History PMHx: HTN, HLD, Thyroid trouble (tumor in thyroid), Only has one kidney, Hx of CVA PSHx: 6 bypass open heart surgery (18 yrs ago), stents placed, Cholecystectomy, Hysterectomy, tonsilectomy, Left hip replacement FHx: Dad- Heart trouble. Lung cancer, Mother- Brain tumor Social: Last smoked 20-25 years ago. Smoke 20 ppd. No illicit drug use - Review of Systems General: denies: fever/chills, weight/appetite/sleep changes Eyes: denies: eye pain, vision changes ENT: denies: nasal congestion Respiratory: denies: cough, congestion, shortness of breath Cardiovascular: reports: edema (reports left leg swelling worse last few days. reports has come and gone). denies: chest pain, palpitation Gastrointestinal: reports: diarrhea (reports 6 episodes watery diarrhea today). denies: nausea, vomiting, constipation, abdominal pain, GI bleeding Genitourinary: denies: incontinence, dysuria, polyuria Skin: denies: rashes, lesions, jaundice Musculoskeletal: denies: pain, stiffness, swelling, arthritis/arthralgias Neurological: denies: numbness, weakness Psychological: denies: anxiety, depression - Vital signs BP: [191/710] HR: [80] RR: [18] Tmax: [98.6] Pox: [95]% on [RA] Wt: [89.76kg] - Physical Exam Constitutional: NAD, awake, alert and oriented, well developed HEENT: normocephalic and atraumatic, grossly normal vision, grossly normal hearing, MMM Neck: supple, no LAD, no JVD, no thyromegaly -Chest: Pt tender to palpation along center of chest Heart: RRR, normal S1/S2, no murmurs/rubs/gallops, pulses present, other -Heart: +1 pitting edema noted in L. LE. No edema noted in R. LE Lungs: CTAB, no respiratory distress, good air movement, no rales/rhonchi, no wheezing, no retractions Abdomen: soft, non-tender, bowel sounds present, no masses/distention, no hernias Musculoskeletal: normal structure, normal tone, ROM grossly normal Neurological: no focal deficit, normal sensation Skin: no rash/lesions, good turgor, capillary refill <2 seconds Heme/Lymphatic: no unusual bruising or bleeding Psychiatric: normal mood and affect, good judgment and insight, intact recent and remote memory FMR H&P: Results - Labs Result Diagrams: 09/15/19 05:00 09/15/19 05:00 Lab results: WBC 8.8 thou/uL (4.8-10.8) 09/14/19 19:23 Hgb 12.1 g/dL (12.0-16.0) 09/14/19 19:23 Hct 37.3 % (36.0-47.0) 09/14/19 19:23 MCV 95.0 fL (78.0-98.0) 09/14/19 19:23 Plt Count 168 thou/uL (130-400) 09/14/19 19:23 Neutrophils % 81.0 % (42.0-75.0) H 09/14/19 19:23 Sodium 138 mmol/L (136-145) 09/14/19 19:24 Potassium 3.9 mmol/L (3.5-5.1) 09/14/19 19:24 Chloride 102 mmol/L (98-107) 09/14/19 19:24 Carbon Dioxide 24 mmol/L (23-31) 09/14/19 19:24 BUN 24 mg/dL (9.8-20.1) H 09/14/19 19:24 Creatinine 1.56 mg/dL (0.6-1.1) H 09/14/19 19:24 Glucose 119 mg/dL (83-110) H 09/14/19 19:24 Calcium 9.2 mg/dL (7.8-10.44) 09/14/19 19:24 Total Bilirubin 0.4 mg/dL (0.2-1.2) 09/14/19 19:24 AST 18 U/L (5-34) 09/14/19 19:24 ALT 14 U/L (8-55) 09/14/19 19:24 Alkaline Phosphatase 84 U/L (40-110) 09/14/19 19:24 Creatine Kinase 67 U/L (29-168) 09/14/19 19:24 B-Natriuretic Peptide 236.5 pg/mL (0-100) H 09/14/19 19:22 Serum Total Protein 7.3 g/dL (6.0-8.3) 09/14/19 19:24 Albumin 4.1 g/dL (3.4-4.8) 09/14/19 19:24 Lipase 38 U/L (8-78) 09/14/19 19:24 - EKG Interpretation EKG: Normal sinus rhythm. No acute abnormality - Radiology Interpretation Chest x-ray Status: image reviewed by me, report reviewed by me (negative) CT scan - chest Status: image reviewed by me, report reviewed by me (CTA chest- No PE) FMR H&P: A/P - Problem List (1) Atypical chest pain Current Visit: No Status: Acute Code(s): R07.89 - OTHER CHEST PAIN (2) CAD (coronary artery disease), [place] coronary artery Current Visit: No Status: Acute Code(s): I25.10 - ATHSCL HEART DISEASE OF [place] CORONARY ARTERY W/O ANG PCTRS (3) Carotid artery disease Current Visit: No Status: Acute Code(s): I77.9 - DISORDER OF ARTERIES AND ARTERIOLES, UNSPECIFIED (4) Hypertensive urgency Current Visit: No Status: Acute Code(s): I16.0 - HYPERTENSIVE URGENCY (5) CKD (chronic kidney disease) stage 3, GFR 30-59 ml/min Current Visit: No Status: Chronic (6) Hyperlipidemia Current Visit: No Status: Chronic Code(s): E78.5 - HYPERLIPIDEMIA, UNSPECIFIED (7) Hypertension Current Visit: No Status: Chronic Code(s): I10 - ESSENTIAL (PRIMARY) HYPERTENSION (8) Hypothyroid Current Visit: No Status: Chronic Code(s): E03.9 - HYPOTHYROIDISM, UNSPECIFIED (9) Diarrhea Current Visit: Yes Status: Acute Code(s): R19.7 - DIARRHEA, UNSPECIFIED - Plan 79 yo F 79 yo F w/ pmh of CAD, HTN, Hypothyroidism, CKD (only one kidney), hx of Carotid Stenosis w/ bilateral CEA and Hx of CVA comes in w/ complaint of Chest pain, Leg pain, and diarrhea. #Atypical Chest Pain -pt has hx of CAD w 6v bypass 18 years ago. Pt tender to palpation in chest -will trend trops -CXR and CTA neg. -COVID swabbed- unlikely infection at this time -FLP, TSH, Mg, Phos ordered -Cardiology consulted- will await recs -ECHO pending. Last echo done in 2018 showed normal EF #COVID RO -Pt with some chest pain and diaphoresis upon presentation to ER. -COVID swab pending -Ferritin, LDH ordered. #HTN urgency -BP elevated to 190's in ER. Hydralazine IV prn for SBP>180 -Continue home meds #Diarrhea -Reports episodes watery diarrhea today. If continues to persist consider stool studies #Hypothyroidism -Pt being reports Thyroid tumor recently. Reports has since shrunk -TSH pending -Continue Home meds #CKD3 -Cr around baseline. Continue to monitor w/ daily BMP #HLD -Continue home meds #CAD w/ 6v CABG -Continue home meds -Cardiology consulted #Leg Pain/Swelling -Pt reports as chronic problem. no redness or tenderness on palption of left calf. Negative homans. Pt did not endorse hx of PVD but was noted when reviewing past admission. -continue home meds DVT ppx: Lovenox GI ppx: Tums Dispo: Pt having atypical chest pain and just not feeling well. Trend trops. ECHO pending. Consult cards for further workup recs as she has had prior CABG 18 years ago. Addendum - Attending - Attending Attestation Date/Time: 09/15/19 0615 I personally evaluated the patient and discussed the management with the team. I agree with the History, Examination, Assessment and Plan documented above with any addition or exceptions noted below.
--- NOTE | 2019-09-14 22:17 | CT ---
CT PULMONARY ANGIOGRAM WITH IV CONTRAST AND 3-D POSTPROCESSING: HISTORY:Shortness of breath, elevated d-dimer FINDINGS: There is good contrast opacification of the pulmonary arterial vasculature without filling defects to suggest pulmonary embolism. The thoracic aorta is well opacified without aneurysm or dissection. No pleural or pericardial effusions are seen. Emphysematous changes are present. No pneumothoraces, focal areas of consolidation or lung nodules ar e noted. There are degenerative changes in the spine. Upper abdominal tomograms demonstrate calcified granulomas in the liver and spleen and a small hiatal hernia IMPRESSION: No CT evidence of pulmonary embolism.
[2019-09-14] MEDS ORDERED: Ondansetron ODT 4 MG TAB PO PRN (22:30)
[2019-09-14] MEDS ORDERED: Nitroglycerin 0.4 MG TAB (25 Tab Bottle) PO PRN (22:30)
[2019-09-14] MEDS ORDERED: Calcium Carbonate 500 MG ChewTAB PO PRN (22:30)
[2019-09-14] MEDS ORDERED: Enoxaparin Sodium 40 MG/0.4 ML SYRINGE SC SCH (22:30)
[2019-09-14] MEDS ORDERED: Ondansetron PF 4 MG/2 ML Vial IVP PRN (22:30)
[2019-09-14 23:12] LABS: Troponin I 0.039 ng/mL (< 0.028)
[2019-09-15] MEDS ORDERED: Enoxaparin Sodium 40 MG/0.4 ML SYRINGE SC SCH (00:15)
[2019-09-15 00:18] VITALS: BMI 30.9
[2019-09-15] MEDS: hydrALAZINE 20 MG/ML VIAL SLOW IVP PRN (00:26)
[2019-09-15] MEDS ORDERED: Ibuprofen 600 MG TAB PO PRN (01:55)
[2019-09-15 02:10] LABS: Troponin I 0.043 ng/mL (< 0.028)
[2019-09-15] MEDS ORDERED: Temazepam 15 MG CAP PO PRN (04:50)
[2019-09-15 05:36] LABS: #Eosinphils 0.1 thou/uL (0.0-0.7); #Monocytes 0.5 thou/uL (0.11-0.59); #Neutrophils 3.9 thou/uL (1.40-6.50); %Basophils 0.5 % (0.0-1.0); %Eosinophils 1.6 % (0.0-10.0); %Lymphocytes 18.8 % (21.0-51.0); Hemoglobin 11.6 g/dL (12.0-16.0); Mean Corpuscular HGB CONC 32.2 g/dL (32.0-36.0); Mean Corpuscular Hemoglobin 30.4 pg (27.0-31.0); Mean Corpuscular Volume 94.6 fL (78.0-98.0); Mean Platelet Volume 9.5 fL (7.4-10.4); Platelet Count 144 thou/uL (130-400); RBC Distribution Width 13.3 % (11.5-14.5); Red Blood Cell (RBC) Count 3.82 mill/uL (4.20-5.40); White Blood Cell (WBC) Count 5.5 thou/uL (4.8-10.8)
[2019-09-15 05:49] LABS: ALT (SGPT) 14 U/L (8-55); AST (SGOT) 18 U/L (5-34); Albumin 3.8 g/dL (3.4-4.8); Alkaline Phosphatase 80 U/L (40-110); Anion Gap 13 mmol/L (10-20); BUN (Urea Nitrogen) 18 mg/dL (9.8-20.1); Bilirubin, Total 0.5 mg/dL (0.2-1.2); Calc. Creatinine Clearance 47 mL/min (70-130); Calcium 9.1 mg/dL (7.8-10.44); Carbon Dioxide 27 mmol/L (23-31); Chloride 104 mmol/L (98-107); Estimated GFR-MDRD 37; Globulin 3.1 g/dL (2.4-3.5); Glucose 103 mg/dL (83-110); Potassium 3.9 mmol/L (3.5-5.1); Protein, Total 6.9 g/dL (6.0-8.3); Sodium 140 mmol/L (136-145)
[2019-09-15 05:50] LABS: Cardiac Risk 2.3 (Less than 4.5); Cholesterol 139 mg/dl (< 200 Desired); HDL Cholesterol 61 mg/dL (>60 Neg Risk); LDL Cholesterol, Calculated 65 mg/dL; Magnesium 1.7 mg/dL (1.6-2.6); Phosphorus 3.7 mg/dL (2.3-4.7); Triglycerides 64 mg/dL (Less than 150)
[2019-09-15 05:54] LABS: Troponin I 0.043 ng/mL (< 0.028)
[2019-09-15 06:02] LABS: Ferritin 34.61 ng/mL (10-291); Thyroid Stimulating Hormone 3.9891 uIU/mL (0.35-4.94)
--- NOTE | 2019-09-15 08:46 | PDOC.FM ---
- Subjective Subjective: Seen at bedside this morning resting comfortably. Pt does complain of continued chest pressure this morning. Denies radiation of pain, palpitations, or diaphoresis. No acute events over night - Objective MAR Reviewed: Yes Vital Signs & Weight: Vital Signs (12 hours) Temp Pulse Resp BP BP Pulse Ox 09/15/19 04:18 96 09/15/19 02:45 97.9 F 86 16 144/63 H 94 L 09/15/19 01:25 84 176/70 H 09/15/19 00:26 85 09/14/19 23:20 98.6 F 85 18 184/77 H 96 09/14/19 22:31 96 Weight Weight 89.766 kg I&O: 09/14/19 09/15/19 09/16/19 06:59 06:59 06:59 Intake Total 200 Output Total 1000 Balance -800 Result Diagrams: 09/15/19 05:00 09/15/19 05:00 Phys Exam - Physical Examination Constitutional: NAD HEENT: PERRLA, moist MMs Neck: no JVD Respiratory: clear to auscultation bilateral Cardiovascular: RRR, no significant murmur Gastrointestinal: soft, non-tender, no distention Musculoskeletal: no edema Neurological: non-focal, moves all 4 limbs Psychiatric: normal affect, A&O x 3 Skin: no rash Dx/Plan (1) Acute kidney injury superimposed on chronic kidney disease Code(s): N17.9 - ACUTE KIDNEY FAILURE, UNSPECIFIED; N18.9 - CHRONIC KIDNEY DISEASE, UNSPECIFIED Status: Acute (2) Atypical chest pain Code(s): R07.89 - OTHER CHEST PAIN Status: Acute (3) Carotid artery disease Code(s): I77.9 - DISORDER OF ARTERIES AND ARTERIOLES, UNSPECIFIED Status: Acute (4) Hypertensive urgency Code(s): I16.0 - HYPERTENSIVE URGENCY Status: Acute (5) CKD (chronic kidney disease) stage 3, GFR 30-59 ml/min Status: Chronic (6) Hyperlipidemia Code(s): E78.5 - HYPERLIPIDEMIA, UNSPECIFIED Status: Chronic (7) Hypertension Code(s): I10 - ESSENTIAL (PRIMARY) HYPERTENSION Status: Chronic (8) Diarrhea Code(s): R19.7 - DIARRHEA, UNSPECIFIED Status: Acute - Plan Plan: #Atypical Chest Pain -pt has hx of CAD w 6v bypass 18 years ago. -trops remain indeterminate, due to hx of cabg will wait for cardiology recommendations prior to stress test -hold beta haja in anticipation of stress test -ECHO pending. Last echo done in 2018 showed normal EF #COVID RO -Pt with some chest pain and diaphoresis upon presentation to ER. -COVID swab pending -Ferritin, LDH ordered. #HTN urgency, resolved #Diarrhea -no diarrhea since last night, will order stool studies if there is recurrence #Hypothyroidism -TSH WNL -Continue Home meds #CKD3 -Cr around baseline. Continue to monitor w/ daily BMP #HLD -Continue home meds #CAD w/ 6v CABG -Continue home meds -Cardiology consulted #Leg Pain/Swelling -Resolved Code Full Diet NPO PPx lovenox Dispo - Pt is in good condition at this time. Would expect 1-2 midnight stay pending cardiology recommendations Addendum - Attending - Attending Attestation Date/Time: 09/15/19 1203 I personally evaluated the patient and discussed the management with Dr. Wagner. I agree with the History, Examination, Assessment and Plan documented above with any addition or exceptions noted below. Patient with extensive CAD history here with chest pain. Cardiology consult given her history and previous CABG. However, COVID swab checked by ED so we will likely have to pursue further workup until that results as negative.
[2019-09-15] MEDS: Gabapentin 100 MG CAP PO SCH ×2 (08:52→20:56)
[2019-09-15] MEDS: cloNIDine 0.1mg/24 Hour PATCH TD SCH (08:52)
[2019-09-15] MEDS: Calcitriol 0.25 MCG CAP PO SCH (08:52)
[2019-09-15] MEDS: Aspirin 325 mg Enteric Coated Tablet PO SCH (08:52)
[2019-09-15] MEDS: Dronedarone HCl 400 MG TAB PO SCH ×2 (08:52→17:46)
[2019-09-15] MEDS: hydrALAZINE 25 MG TAB PO SCH ×3 (08:53→20:55)
[2019-09-15] MEDS ORDERED: LEVOMEFOLATE CALCIUM PO SCH (09:00)
[2019-09-15] MEDS ORDERED: B6 PO SCH (09:00)
[2019-09-15] MEDS ORDERED: Carvedilol 25 MG TAB PO SCH (09:00)
[2019-09-15] MEDS ORDERED: B12 PO SCH (09:00)
[2019-09-15] MEDS: Senokot 8.6 MG TAB PO SCH (09:25)
[2019-09-15] MEDS ORDERED: Atorvastatin Calcium 10 MG TAB PO SCH (21:00)
[2019-09-15] MEDS ORDERED: Enoxaparin Sodium 30 MG/0.3 ML SYRINGE SC SCH (21:00)
[2019-09-15] MEDS ORDERED: NIFEdipine XL 30 MG TAB PO SCH (21:00)
[2019-09-15] MEDS ORDERED: Amitriptyline HCl 25 MG TAB PO SCH (21:00)
--- NOTE | 2019-09-16 06:44 | PDOC.FM ---
- Subjective Subjective: Patient denies SOB or palpitations this morning, but does report susbsternal chest pressure, that radiates to bilat shoulders. Chest pressure is worse with laying flat. She denies worsening with exertion or improvement with nitro. She states her legs have been swelling recently but this has gone down with laying in the bed all day yesterday. No acute events overnight. She states her diarrhea resolved. - Objective Vital Signs & Weight: Vital Signs (12 hours) Temp Pulse Resp BP BP Pulse Ox 09/16/19 04:01 98.5 F 73 16 148/67 H 93 L 09/15/19 23:09 174/74 H 09/15/19 20:56 75 192/76 H 09/15/19 20:55 75 192/76 H 09/15/19 20:00 98.2 F 72 18 192/76 H 96 Weight Admit Weight 89.766 kg Weight 89.766 kg I&O: 09/14/19 09/15/19 09/16/19 06:59 06:59 06:59 Intake Total 200 350 Output Total 1000 950 Balance -800 -600 Result Diagrams: 09/15/19 05:00 09/16/19 09:56 Phys Exam - Physical Examination Constitutional: NAD Respiratory: no wheezing inspiratory crackles at bilateral bases Cardiovascular: RRR 1/6 systolic murmur; substernal chest pressure is not reproducible Gastrointestinal: soft, non-tender, no distention trace edema BLE Neurological: non-focal, moves all 4 limbs Psychiatric: normal affect, A&O x 3 Skin: no rash, normal turgor Dx/Plan (1) Atypical chest pain Code(s): R07.89 - OTHER CHEST PAIN Status: Acute (2) Diarrhea Code(s): R19.7 - DIARRHEA, UNSPECIFIED Status: Acute (3) CAD (coronary artery disease), [place] coronary artery Code(s): I25.10 - ATHSCL HEART DISEASE OF [place] CORONARY ARTERY W/O ANG PCTRS Status: Chronic (4) Hypertensive urgency Code(s): I16.0 - HYPERTENSIVE URGENCY Status: Acute (5) CKD (chronic kidney disease) stage 3, GFR 30-59 ml/min Status: Chronic (6) Hyperlipidemia Code(s): E78.5 - HYPERLIPIDEMIA, UNSPECIFIED Status: Chronic (7) Hypertension Code(s): I10 - ESSENTIAL (PRIMARY) HYPERTENSION Status: Chronic (8) Hypothyroid Code(s): E03.9 - HYPOTHYROIDISM, UNSPECIFIED Status: Chronic - Plan Plan: #Atypical Chest Pain -pt has hx of CAD w 6v bypass 18 years ago. -trops indeterminate -ECHO pending. Last echo done in 2018 showed normal EF -Dr Brown consulted, appreciate recommendations #COVID RO -Pt with some chest pain and diaphoresis upon presentation to ER. -COVID swab negative #HTN urgency, resolved #Diarrhea, resolved #Hypothyroidism -TSH WNL, continue Home meds #CKD3 -Cr around baseline. Continue to monitor w/ daily BMP #HLD -Continue home meds #CAD w/ 6v CABG -Continue home meds -Cardiology consulted #Leg Pain/Swelling -Resolved Code Full Diet NPO PPx lovenox Dispo - Awaiting echo results. Cardiology consulted, appreciate recs. Covid negative. Patient possibly home tomorrow pending cardiology recs. Addendum - Attending - Attending Attestation Date/Time: 09/16/19 1141 I personally evaluated the patient and discussed the management with Dr. Jacques Heredia. I agree with the History, Examination, Assessment and Plan documented above with any addition or exceptions noted below. Patient continues to have chest pressure. Cardiology consulted, awaiting their recommendations. She is otherwise stable. COVID negative though did not have high suspicion of that to begin with.
[2019-09-16] MEDS: Dronedarone HCl 400 MG TAB PO SCH ×2 (08:29→16:03)
[2019-09-16] MEDS: Senokot 8.6 MG TAB PO SCH ×2 (08:30→09:36)
[2019-09-16] MEDS: Aspirin 325 mg Enteric Coated Tablet PO SCH (08:30)
[2019-09-16] MEDS: Gabapentin 100 MG CAP PO SCH (08:30)
[2019-09-16] MEDS: Calcitriol 0.25 MCG CAP PO SCH (08:30)
[2019-09-16] MEDS: hydrALAZINE 25 MG TAB PO SCH ×2 (08:31→16:03)
[2019-09-16] MEDS: cloNIDine 0.1mg/24 Hour PATCH TD SCH (08:38)
[2019-09-16] MEDS ORDERED: Folic Acid 1 MG TAB PO SCH (09:00)
[2019-09-16] MEDS ORDERED: Cyanocobalamin (Vitamin B-12) 1,000 MCG TAB PO SCH (09:00)
[2019-09-16] MEDS ORDERED: pyridOXINE 50 MG (B6) TAB PO SCH (09:00)
[2019-09-16] MEDS ORDERED: ADENOSINE 60 MG/20 ML VIAL ONE (09:14)
[2019-09-16 10:27] LABS: Anion Gap 16 mmol/L (10-20); BUN (Urea Nitrogen) 26 mg/dL (9.8-20.1); Calc. Creatinine Clearance 39 mL/min (70-130); Calcium 9.4 mg/dL (7.8-10.44); Carbon Dioxide 22 mmol/L (23-31); Chloride 105 mmol/L (98-107); Estimated GFR-MDRD 30; Glucose 82 mg/dL (83-110); Potassium 4.4 mmol/L (3.5-5.1); Sodium 139 mmol/L (136-145)
[2019-09-16] MEDS: hydrALAZINE 20 MG/ML VIAL SLOW IVP PRN (13:17)
--- NOTE | 2019-09-16 15:48 | CON ---
DATE OF CONSULTATION: REASON FOR CONSULTATION: Atypical chest pain. HISTORY OF PRESENT ILLNESS: Ms. Will is a very pleasant 79-year-old woman who was seen and evaluated in the past. She has a history of CAD, status post bypass surgery. She recently developed chest pain. The pain has been fairly constant. It waxes and wanes. Worse with deep breath. It is dull in nature. No ameliorating, exacerbating, or precipitating factors present PAST MEDICAL HISTORY: Paroxysmal atrial fibrillation, moderate aortic insufficiency, moderate MR, chronic kidney disease, hypertension, hyperlipidemia, previous CVA. HOME MEDICATIONS: Include: 1. Synthroid. 2. . 3. Vitamin D. 4. Allopurinol. 5. Aspirin. 6. Gabapentin. 7. Hydralazine. 8. Nifedipine. 9. Carvedilol. 10. Clonidine. 11. Pravastatin. 12. Temazepam. 13. Amitriptyline. 14. Multaq. 15. Hydrochlorothiazide. PAST SURGICAL HISTORY: Tonsillectomy, cholecystectomy, hysterectomy, carotid endarterectomy, bypass x6, hip replacement. SOCIAL HISTORY: No current tobacco or alcohol use. ALLERGIES: PENICILLIN. REVIEW OF SYSTEMS: A 10-point review of systems is reviewed and as above, otherwise negative. PHYSICAL EXAMINATION: GENERAL: Patient is a pleasant woman who is in no acute distress. The patient appears her stated age. VITAL SIGNS: Blood pressure 199/81, pulse 82, temperature afebrile. NEUROLOGIC: The patient is alert and oriented x3 with no focal neurologic deficits. HEENT: Sclerae without icterus. Mouth has moist mucous membranes with normal pallor. NECK: No JVD. Carotid upstroke brisk. No bruits bilaterally. LUNGS: Clear to auscultation with unlabored respirations. BACK: No scoliosis or kyphosis. CARDIAC: Regular rate and rhythm with normal S1 and S2. No S3 or S4 noted. No significant rubs, murmurs, thrills, or gallops noted throughout the precordium. PMI is not displaced. There is no parasternal heave. ABDOMEN: Soft, nontender, nondistended. No peritoneal signs present. No hepatosplenomegaly. No abnormal striae. EXTREMITIES: 2+ femoral and 2+ dorsalis pedis pulses. No cyanosis, clubbing, or edema. SKIN: No gross abnormalities. PERTINENT LABORATORY DATA: Creatinine 1.64, GFR of 30. IMPRESSION: 1. Atypical chest pain. 2. Coronary artery disease. 3. Status post bypass surgery. RECOMMENDATIONS: Ms. Will's symptoms do not appear to be typical of angina. She does have a history of CAD, status bypass surgery. She has not had a stress study performed in about 5 years. We would recommend a noninvasive stress study to assess for any areas of ischemia. If felt to be small areas of ischemia, would then recommend medical therapy. If felt to be large area, would then consider proceeding coronary angiography. Job ID: [id number]
--- NOTE | 2019-09-16 16:09 | NM ---
Radionucleotide stress only myocardial perfusion scan with CT attenuation correction and SPECT imagin g Left ventricular wall motion evaluation and ejection fraction HISTORY: Chest pain. FINDINGS: Adenosine protocol. Heterogeneous uptake of radiotracer throughout the left ventricular rizwana cardium with some diaphragmatic attenuation evident. No focal perfusion defect is demonstrated. QGS analysis of gated SPECT images shows no focal wall motion abnormalities. Ejection fraction calcul ated at 67%. IMPRESSION : No evidence of ischemia. Normal LVEF.
[2019-09-16 17:16] VITALS: BP 187/73; TEMP 98.4
--- NOTE | 2019-09-17 13:21 | DIS ---
DATE OF ADMISSION: 09/14/2019 DATE OF DISCHARGE: 09/16/2019 RESIDENT: Екатерина Heredia MD. ATTENDING: Eduard Cronin MD DISCHARGE ATTENDING: Grady Luevano MD CONSULTS: Dr. Brown, Cardiology on 09/15/2019. PROCEDURES: 1. Chest x-ray on 09/14/2019. Impression, no evidence of acute cardiopulmonary process. 2. CTA chest on 09/14/2019. Impression, no CT evidence of pulmonary embolus. Emphysematous changes are present. Upper abdominal tomograms demonstrate calcified granulomas in the liver and spleen and a small hiatal hernia. 3. Stress test nuclear medicine on 09/16/2019, impression, no evidence of ischemia, normal LVEF of 67%. 4. Echocardiogram on 09/16/2019. LVEF estimated at 55% to 60%, mild concentric left ventricular hypertrophy. E/A flow reversal noted suggestive of diastolic dysfunction. Mitral annular calcification is present. Moderately thickened trileaflet aortic valve with normal excursion. Mild aortic regurgitation is noted. [id number] tricuspid regurgitation. Normal pulmonary artery pressure. The left atrium is mildly dilated. PRIMARY DIAGNOSIS: Atypical chest pain. SECONDARY DIAGNOSES: 1. COVID ruled out. 2. Hypertensive urgency, resolved. 3. Diarrhea, resolved. 4. Hypothyroidism. 5. Chronic kidney disease 3. 6. Hyperlipidemia. 7. Coronary artery disease, status post six-vessel coronary artery bypass graft. 8. Leg pain, swelling. DISCHARGE MEDICATIONS: 1. Carvedilol 25 mg p.o. b.i.d. 2. Levothyroxine p.o. daily. 3. Pravastatin 40 mg p.o. at bedtime. 4. Multaq 400 mg p.o. b.i.d. with meals. 5. Restoril 15 mg p.o. at bedtime p.r.n. for insomnia. 6. Hydralazine 100 mg p.o. t.i.d. 7. Clonidine 0.2 mg transdermal patch every week. 8. Nifedipine 30 mg p.o. at bedtime. 9. Cholecalciferol 5000 units p.o. daily. 10. B12 multivitamin one tablet p.o. daily. 11. Aspirin 325 mg p.o. daily. 12. Calcitriol 0.25 mcg p.o. daily. 13. Gabapentin 100 mg p.o. b.i.d. 14. Amitriptyline 50 mg p.o. bedtime. 15. Sennosides one tab p.o. daily. DISCONTINUED MEDICATIONS: None. HISTORY OF PRESENT ILLNESS/HOSPITAL COURSE: A 79-year-old female with a past medical history of coronary artery disease, status post six -vessel CABG, hypertension, and history of CVA, presented with complaint of chest pain/ pressure and diarrhea. The chest pain had started a few days prior to admission. Reports having chest tightness that lasted for 2 to 3 minutes, this worsens when she is lying down. She also report that it is worse in the evening. The patient reported chills, but denied fever. The patient also reported six episodes of diarrhea, but denied hematochezia. The patient also reported leg swelling and burning pain that had been chronic and was recently started on gabapentin for this. The patient's troponins were indeterminate. EKG showed normal sinus rhythm. Chest x-ray had no acute abnormality. CT was negative for PE. Due to her history, Cardiology was consulted, who saw the patient and ordered a stress test, which was normal. Echo was repeated. The results as above. The patient was also tested for COVID due to her chest pain and diaphoresis on presentation to the ER, which was negative. Her other home medications were continued. DISPOSITION: Stable. DISCHARGE INSTRUCTIONS: 1. Location: Home. 2. Diet: Heart healthy. 3. Activity: As tolerated. 4. Follow up with Dr. Nico Velasquez within 7 days. Follow up with Dr. Tejeda within 3 to 4 weeks. Job ID: [id number] MTDD
--- NOTE | 2019-09-25 14:50 | EKG ---
Test Reason : Blood Pressure : / mmHG Vent. Rate : 077 BPM Atrial Rate : 077 BPM P-R Int : 258 ms QRS Dur : 120 ms QT Int : 456 ms P-R-T Axes : 042 038 048 degrees QTc Int : 516 ms Sinus rhythm with 1st degree A-V block RSR' or QR pattern in V1 suggests right ventricular conduction delay Borderline ECG Confirmed by RAFAEL CHRISTINA, SUSAN ([id number]), communications editor ROHITH BARAJAS ([id number]) on 09/25/2019 2:50:00 PM Referred By: Confirmed By:SUSAN HALL MD
== END 2019-09-16 18:43 | disposition home or self-care (01) ==
LOC: ERS 18:32 → 2SW 22:08 → 2NO 09-15 19:58
PROVIDERS: ADMIT Emergency Medicine; ATTEND Emergency Medicine
DX: R07.89 Other chest pain (principal); I16.0 Hypertensive urgency; I12.9 Hypertensive chronic kidney disease with stage 1 through stage 4 chronic kidney disease, or unspecified chronic kidney disease; N18.3 Chronic kidney disease, stage 3 (moderate); I25.10 Atherosclerotic heart disease of native coronary artery without angina pectoris; E03.9 Hypothyroidism, unspecified; E78.5 Hyperlipidemia, unspecified; Z79.82 Long term (current) use of aspirin; Z79.899 Other long term (current) drug therapy; Z86.73 Personal history of transient ischemic attack (TIA), and cerebral infarction without residual deficits; Z87.891 Personal history of nicotine dependence; Z88.0 Allergy status to penicillin; Z88.6 Allergy status to analgesic agent; Z95.1 Presence of aortocoronary bypass graft
CPT/HCPCS: 71045; 71275; 78452; 80048; 80053; 80061; 82550; 82728; 82962; 83615; 83690; 83735; 83880; 84100; 84484 ×4; 85025; 85379; 93005; 93017; 93306; 94760 ×2; 96361; 96372; 96374; 96375; 97139; 99285; A9500; G0378 ×4; U0003; 36415; 36416; 84443; 87635; 96360; J0153; J0360; J1650; Q9967

== ENCOUNTER 2020-02-29 13:16 | Outpatient (CLI) | payer MEDICARE ==
--- NOTE | 2020-02-29 16:31 | ULT ---
ULTRASOUND THYROID: Date: 02/29/2020 HISTORY: 79-year-old female with "goiter." Follow-up thyroid nodule. COMPARISON: 01/28/2019 and 12/05/[address] angiogram of chest of 09/14/2019, and CT angiogram of neck of 10/15/2012. FINDINGS: Thyroid dimensions: Isthmus: 0.7 AP Right lobe: 1.7 x 1.8 x 3.9 cm.. Left lobe: 2.1 x 2.3 x 3.8 cm. Thyroid parenchymal echogenicity:Homogeneous and normal.. Nodule # 1: Location: Left lobe, occupying almost the entire left lobe, including upper, mid, and especially lowe r pole.: Size: 1.9 x 2.2 x 2.6 cm.. Composition: Mixed solid and cystic: 1 point. Echogenicity: Solid component is isoechoic: 1 point. Shape: Lily than wide: 3 points Margin: Cannot be determined: 0 points Echogenic foci: None: 0 points Total points: 5 TIRADS category:4: Moderately suspicious. However, this has not significantly grown since CT angiogram of neck of 10/15/2012. Therefore, no biopsy and no follow-up is recommended. Nodule # 2: Location: Right mid pole: Size: 0.3 x 0.2 x 0.3 cm.. Composition: Cystic: 0 points, benign cyst. IMPRESSION: The solid and cystic (mostly cystic) nodule dominating the left lobe has not significantly grown sinc e 2012. Therefore, despite the TIRADS 4 categorization, this is benign and does not require additional follow -up or FNA biopsy.
== END 2020-02-29 13:17 | disposition home or self-care (01) ==
LOC: BICULT 13:16
PROVIDERS: ATTEND Otolaryngology Plastic Surgery within the Head & Neck
DX: E04.1 Nontoxic single thyroid nodule (principal)
CPT/HCPCS: 76536

== ENCOUNTER 2020-08-29 11:11 | Emergency (ER) | payer MEDICARE | END 2020-08-29 14:24 | disposition home or self-care (01) | LOC: ERS 11:11 | DX: I97.638 Postprocedural hematoma of a circulatory system organ or structure following other circulatory system procedure (principal); I10 Essential (primary) hypertension; I25.10 Atherosclerotic heart disease of native coronary artery without angina pectoris; E78.5 Hyperlipidemia, unspecified; E78.00 Pure hypercholesterolemia, unspecified; Z86.73 Personal history of transient ischemic attack (TIA), and cerebral infarction without residual deficits; Z87.891 Personal history of nicotine dependence; Z79.899 Other long term (current) drug therapy | CPT/HCPCS: 76936 ==

== ENCOUNTER 2021-02-25 07:12 | Inpatient (IN) | payer MEDICARE ==
[2021-02-25 08:24] LABS: #Lymphocytes 0.3 thou/uL (1.20-3.40); #Monocytes 0.1 thou/uL (0.11-0.59); #Neutrophils 1.7 thou/uL (1.40-6.50); %Basophils 0.8 % (0.0-1.0); %Eosinophils 1.4 % (0.0-10.0); %Lymphocytes 14.7 % (21.0-51.0); %Monocytes 5.4 % (0.0-10.0); %Neutrophils 77.8 % (42.0-75.0); Hemoglobin 13.4 g/dL (12.0-16.0); Mean Corpuscular HGB CONC 32.5 g/dL (32.0-36.0); Mean Corpuscular Hemoglobin 29.9 pg (27.0-31.0); Mean Corpuscular Volume 91.9 fL (78.0-98.0); Mean Platelet Volume 8.3 fL (7.4-10.4); Platelet Count 163 thou/uL (130-400); RBC Distribution Width 13.4 % (11.5-14.5); Red Blood Cell (RBC) Count 4.49 mill/uL (4.20-5.40); White Blood Cell (WBC) Count 2.2 thou/uL (4.8-10.8)
[2021-02-25 08:38] LABS: SARS-CoV-2 NAA Rapid Test Not Detected (NotDetected)
[2021-02-25 08:39] LABS: ALT (SGPT) 9 U/L (8-55); AST (SGOT) 14 U/L (5-34); Albumin 3.7 g/dL (3.4-4.8); Alkaline Phosphatase 65 U/L (40-110); Anion Gap 16 mmol/L (10-20); BUN (Urea Nitrogen) 29 mg/dL (9.8-20.1); Bilirubin, Total 0.6 mg/dL (0.2-1.2); Calc. Creatinine Clearance 0 mL/min (70-130); Calcium 9.6 mg/dL (7.8-10.44); Carbon Dioxide 26 mmol/L (23-31); Chloride 104 mmol/L (98-107); Glucose 78 mg/dL (83-110); Potassium 3.9 mmol/L (3.5-5.1); Protein, Total 6.7 g/dL (5.8-8.1); Sodium 142 mmol/L (136-145)
[2021-02-25] MEDS ORDERED: Azithromycin 500 MG VIAL ONE (09:13)
[2021-02-25] MEDS ORDERED: cefTRIAXone\\ROCEPHIN 2 GM VIAL ONE (09:13)
[2021-02-25 11:09] LABS: Lactic Acid 1.3 mmol/L (0.5-2.2)
[2021-02-25 11:19] LABS: Troponin I 0.016 ng/mL (< 0.028)
[2021-02-25] MEDS ORDERED: Ondansetron PF 4 MG/2 ML Vial IVP PRN (11:57)
[2021-02-25] MEDS ORDERED: Ondansetron ODT 4 MG TAB PO PRN (11:57)
[2021-02-25 12:44] VITALS: BMI 29.5
[2021-02-25] MEDS ORDERED: Famotidine/PF 20 mg/2ml Vial SLOW IVP SCH (13:00)
[2021-02-25] MEDS ORDERED: VANCOMYCIN 1.25 GM/250 ML BAG 1.25 GM in Premix Bag 1 BAG IVPB SCH (13:00)
[2021-02-25] MEDS: Lactated Ringer's 1,000 ML IV SCH (13:18)
[2021-02-25] MEDS: Heparin 5,000 UNITS/ML VIAL SC SCH (13:18)
[2021-02-25] MEDS ORDERED: VANCOMYCIN IVPB SCH (14:00)
[2021-02-25 15:07] LABS: Actual Bicarbonate (HCO3a) 22.3 mEq/L (22-28); CO2 Tension 45.7 mmHg (35.0-45.0); Calcium, Ionized (arterial) 1.17 mmol/L (1.12-1.30); Carboxyhemoglobin (COHb) 0.4 gm% (0.0-3.0); Hemoglobin (Hb) 11.3 g/dL (12.0-16.0); O2 Tension (PaO2), arterial 66.7 mmHg (> 60.0); Potassium - ABG Lab 3.66 mmol/L (3.70-5.30); pH, Arterial 7.31 (7.35-7.45)
[2021-02-25] MEDS: Dronedarone HCl 400 MG TAB PO SCH (19:19)
[2021-02-25] MEDS: methylPREDNISolone Sod Succ 40 MG VIAL IVP SCH (19:19)
[2021-02-25] MEDS: guaiFENesin ER 600 MG TAB PO SCH (21:54)
[2021-02-25] MEDS: Atorvastatin Calcium 10 MG TAB PO SCH (21:54)
[2021-02-25] MEDS: Carvedilol 25 MG TAB PO SCH (21:54)
[2021-02-26] MEDS: methylPREDNISolone Sod Succ 40 MG VIAL IVP SCH ×4 (01:51→18:25)
[2021-02-26] MEDS: Lactated Ringer's 1,000 ML IV SCH ×2 (01:51→08:23)
[2021-02-26 04:15] LABS: ALT (SGPT) 9 U/L (8-55); AST (SGOT) 16 U/L (5-34); Albumin 2.9 g/dL (3.4-4.8); Alkaline Phosphatase 33 U/L (40-110); Anion Gap 13 mmol/L (10-20); BUN (Urea Nitrogen) 24 mg/dL (9.8-20.1); Bilirubin, Total 0.4 mg/dL (0.2-1.2); Calc. Creatinine Clearance 46 mL/min (70-130); Calcium 8.7 mg/dL (7.8-10.44); Carbon Dioxide 24 mmol/L (23-31); Chloride 104 mmol/L (98-107); Globulin 2.5 g/dL (2.4-3.5); Glucose 82 mg/dL (83-110); Protein, Total 5.4 g/dL (5.8-8.1); Sodium 137 mmol/L (136-145)
[2021-02-26 04:57] LABS: Band 58 % (5-11); Lymphocytes 8 % (21-51); MDiff Complete? YES; Mean Corpuscular HGB CONC 32.6 g/dL (32.0-36.0); Mean Corpuscular Hemoglobin 30.4 pg (27.0-31.0); Mean Corpuscular Volume 93.1 fL (78.0-98.0); Mean Platelet Volume 8.7 fL (7.4-10.4); Metamyelocyte 7 % (0-0); Monocytes 3 % (0-10); Myelocyte 1 % (0-0); Neutrophil 23 % (42-75); Platelet Count 98 thou/uL (130-400); Platelet Morphology Comment Appears Decreased; RBC Distribution Width 13.3 % (11.5-14.5); Red Blood Cell (RBC) Count 3.29 mill/uL (4.20-5.40); Reflex for Review?? YES; White Blood Cell (WBC) Count 5.7 thou/uL (4.8-10.8)
[2021-02-26] MEDS: Heparin 5,000 UNITS/ML VIAL SC SCH ×4 (06:19→20:34)
[2021-02-26] MEDS ORDERED: cefTRIAXone\\ROCEPHIN 2 GM in Sodium Chloride 0.9% 100 ML IVPB SCH (09:00)
[2021-02-26] MEDS ORDERED: PATIENT'S HOME MEDICATION PO SCH (09:00)
[2021-02-26] MEDS: Calcitriol 0.25 MCG CAP PO SCH (09:58)
[2021-02-26] MEDS: Stress 600 With Zinc 1 TAB PO SCH (09:58)
[2021-02-26] MEDS: Aspirin 325 mg Enteric Coated Tablet PO SCH (09:59)
[2021-02-26] MEDS: Carvedilol 25 MG TAB PO SCH ×2 (09:59→20:31)
[2021-02-26] MEDS: Dronedarone HCl 400 MG TAB PO SCH ×2 (09:59→18:22)
[2021-02-26] MEDS: Famotidine/PF 20 mg/2ml Vial SLOW IVP SCH (09:59)
[2021-02-26] MEDS: guaiFENesin ER 600 MG TAB PO SCH ×2 (09:59→20:32)
[2021-02-26] MEDS ORDERED: VANCOMYCIN 1.25 GM/250 ML BAG 1.25 GM in Premix Bag 1 BAG IVPB SCH (13:00)
[2021-02-26] MEDS: Atorvastatin Calcium 10 MG TAB PO SCH (20:31)
[2021-02-27] MEDS: methylPREDNISolone Sod Succ 40 MG VIAL IVP SCH ×4 (00:14→17:33)
[2021-02-27 09:02] LABS: ALT (SGPT) 14 U/L (8-55); AST (SGOT) 19 U/L (5-34); Albumin 3.2 g/dL (3.4-4.8); Alkaline Phosphatase 44 U/L (40-110); Anion Gap 14 mmol/L (10-20); BUN (Urea Nitrogen) 33 mg/dL (9.8-20.1); Bilirubin, Total 0.5 mg/dL (0.2-1.2); Calc. Creatinine Clearance 41 mL/min (70-130); Calcium 8.8 mg/dL (7.8-10.44); Carbon Dioxide 25 mmol/L (23-31); Chloride 105 mmol/L (98-107); Globulin 2.7 g/dL (2.4-3.5); Glucose 180 mg/dL (83-110); Potassium 3.9 mmol/L (3.5-5.1); Protein, Total 5.9 g/dL (5.8-8.1); Sodium 140 mmol/L (136-145)
[2021-02-27] MEDS: Carvedilol 25 MG TAB PO SCH ×2 (09:27→21:37)
[2021-02-27] MEDS: Stress 600 With Zinc 1 TAB PO SCH (09:27)
[2021-02-27] MEDS: guaiFENesin ER 600 MG TAB PO SCH ×2 (09:27→21:37)
[2021-02-27] MEDS: Dronedarone HCl 400 MG TAB PO SCH ×2 (09:27→17:33)
[2021-02-27] MEDS: Calcitriol 0.25 MCG CAP PO SCH (09:28)
[2021-02-27] MEDS: Famotidine/PF 20 mg/2ml Vial SLOW IVP SCH (09:28)
[2021-02-27] MEDS: Heparin 5,000 UNITS/ML VIAL SC SCH ×3 (09:28→21:38)
[2021-02-27] MEDS: Aspirin 325 mg Enteric Coated Tablet PO SCH (09:28)
[2021-02-27 09:39] LABS: Mean Corpuscular Hemoglobin 30.9 pg (27.0-31.0); Mean Corpuscular Volume 93.7 fL (78.0-98.0); Mean Platelet Volume 9.2 fL (7.4-10.4); Platelet Count 127 thou/uL (130-400); RBC Distribution Width 13.4 % (11.5-14.5); Red Blood Cell (RBC) Count 3.55 mill/uL (4.20-5.40); White Blood Cell (WBC) Count 7.7 thou/uL (4.8-10.8)
[2021-02-27 09:54] LABS: Band 19 % (5-11); Lymphocytes 9 % (21-51); MDiff Complete? YES; Monocytes 1 % (0-10); Neutrophil 71 % (42-75); Platelet Morphology Comment Appears Decreased; Polychromasia SLIGHT = 2-3 cells (100X) (0-2/hpf)
[2021-02-27] MEDS: Cefepime 2 GM in Sodium Chloride 0.9% 100 ML IVPB SCH ×2 (10:32→21:37)
[2021-02-27] MEDS: Atorvastatin Calcium 10 MG TAB PO SCH (21:37)
[2021-02-28] MEDS: methylPREDNISolone Sod Succ 40 MG VIAL IVP SCH ×4 (00:17→20:07)
[2021-02-28 06:48] LABS: ALT (SGPT) 26 U/L (8-55); AST (SGOT) 26 U/L (5-34); Albumin 3.2 g/dL (3.4-4.8); Alkaline Phosphatase 44 U/L (40-110); Anion Gap 14 mmol/L (10-20); BUN (Urea Nitrogen) 34 mg/dL (9.8-20.1); Bilirubin, Total 0.4 mg/dL (0.2-1.2); Calc. Creatinine Clearance 43 mL/min (70-130); Calcium 9.5 mg/dL (7.8-10.44); Carbon Dioxide 24 mmol/L (23-31); Chloride 107 mmol/L (98-107); Globulin 3.1 g/dL (2.4-3.5); Glucose 125 mg/dL (83-110); Hemoglobin 10.8 g/dL (12.0-16.0); Mean Corpuscular Hemoglobin 30.6 pg (27.0-31.0); Mean Corpuscular Volume 92.5 fL (78.0-98.0); Mean Platelet Volume 8.8 fL (7.4-10.4); Platelet Count 143 thou/uL (130-400); Potassium 3.5 mmol/L (3.5-5.1); Protein, Total 6.3 g/dL (5.8-8.1); RBC Distribution Width 13.4 % (11.5-14.5); Red Blood Cell (RBC) Count 3.54 mill/uL (4.20-5.40); Sodium 141 mmol/L (136-145); White Blood Cell (WBC) Count 8.6 thou/uL (4.8-10.8)
[2021-02-28 07:28] LABS: Band 32 % (5-11); Lymphocytes 8 % (21-51); MDiff Complete? YES; Neutrophil 60 % (42-75); Platelet Morphology Comment Appears Adequate; Polychromasia SLIGHT = 2-3 cells (100X) (0-2/hpf)
[2021-02-28] MEDS: Aspirin 325 mg Enteric Coated Tablet PO SCH (08:31)
[2021-02-28] MEDS: Dronedarone HCl 400 MG TAB PO SCH ×2 (08:31→16:28)
[2021-02-28] MEDS: Famotidine/PF 20 mg/2ml Vial SLOW IVP SCH (08:31)
[2021-02-28] MEDS: Cefepime 2 GM in Sodium Chloride 0.9% 100 ML IVPB SCH ×2 (08:31→20:01)
[2021-02-28] MEDS: Calcitriol 0.25 MCG CAP PO SCH (08:31)
[2021-02-28] MEDS: Heparin 5,000 UNITS/ML VIAL SC SCH ×3 (08:32→20:05)
[2021-02-28] MEDS: Stress 600 With Zinc 1 TAB PO SCH (08:32)
[2021-02-28] MEDS: guaiFENesin ER 600 MG TAB PO SCH ×2 (08:32→20:02)
[2021-02-28] MEDS: Carvedilol 25 MG TAB PO SCH ×2 (08:32→20:01)
[2021-02-28] MEDS: Polyethylene Glycol 3350 17 GM Packet PO PRN (12:09)
[2021-02-28] MEDS: hydrALAZINE 25 MG TAB PO SCH ×2 (15:35→20:02)
[2021-02-28] MEDS: Atorvastatin Calcium 10 MG TAB PO SCH (20:01)
[2021-03-01 05:40] LABS: Hemoglobin 10.4 g/dL (12.0-16.0); Mean Corpuscular HGB CONC 33.8 g/dL (32.0-36.0); Mean Corpuscular Volume 91.9 fL (78.0-98.0); Mean Platelet Volume 8.3 fL (7.4-10.4); Platelet Count 139 thou/uL (130-400); RBC Distribution Width 13.3 % (11.5-14.5); Red Blood Cell (RBC) Count 3.35 mill/uL (4.20-5.40); White Blood Cell (WBC) Count 7.1 thou/uL (4.8-10.8)
[2021-03-01 05:55] LABS: ALT (SGPT) 27 U/L (8-55); AST (SGOT) 20 U/L (5-34); Albumin 2.9 g/dL (3.4-4.8); Alkaline Phosphatase 40 U/L (40-110); Anion Gap 13 mmol/L (10-20); BUN (Urea Nitrogen) 37 mg/dL (9.8-20.1); Bilirubin, Total 0.5 mg/dL (0.2-1.2); Calc. Creatinine Clearance 48 mL/min (70-130); Calcium 9.1 mg/dL (7.8-10.44); Carbon Dioxide 28 mmol/L (23-31); Chloride 107 mmol/L (98-107); Globulin 2.8 g/dL (2.4-3.5); Glucose 119 mg/dL (83-110); Potassium 3.5 mmol/L (3.5-5.1); Protein, Total 5.7 g/dL (5.8-8.1); Sodium 144 mmol/L (136-145)
[2021-03-01 06:07] LABS: Band 19 % (5-11); Lymphocytes 4 % (21-51); MDiff Complete? YES; Monocytes 2 % (0-10); Neutrophil 75 % (42-75)
[2021-03-01] MEDS: Cefepime 2 GM in Sodium Chloride 0.9% 100 ML IVPB SCH ×2 (08:44→09:00)
[2021-03-01] MEDS: guaiFENesin ER 600 MG TAB PO SCH ×2 (08:45→21:12)
[2021-03-01] MEDS: Famotidine/PF 20 mg/2ml Vial SLOW IVP SCH ×2 (08:45→09:00)
[2021-03-01] MEDS: Stress 600 With Zinc 1 TAB PO SCH (08:45)
[2021-03-01] MEDS: Aspirin 325 mg Enteric Coated Tablet PO SCH (08:45)
[2021-03-01] MEDS: Dronedarone HCl 400 MG TAB PO SCH ×2 (08:46→17:28)
[2021-03-01] MEDS: Heparin 5,000 UNITS/ML VIAL SC SCH ×3 (08:46→21:15)
[2021-03-01] MEDS: Calcitriol 0.25 MCG CAP PO SCH (08:46)
[2021-03-01] MEDS: Carvedilol 25 MG TAB PO SCH ×2 (08:46→21:11)
[2021-03-01] MEDS: hydrALAZINE 25 MG TAB PO SCH ×3 (08:46→21:10)
[2021-03-01] MEDS: methylPREDNISolone Sod Succ 40 MG VIAL IVP SCH ×2 (08:46→09:00)
[2021-03-01] MEDS ORDERED: cloNIDine 0.1mg/24 Hour PATCH TD SCH (12:30)
[2021-03-01] MEDS ORDERED: predniSONE 20 MG TAB PO SCH (12:30)
[2021-03-01] MEDS: Polyethylene Glycol 3350 17 GM Packet PO PRN (17:29)
[2021-03-01] MEDS ORDERED: NIFEdipine XL 60 MG TAB PO SCH (21:00)
[2021-03-01] MEDS: Atorvastatin Calcium 10 MG TAB PO SCH (21:10)
[2021-03-01] MEDS ORDERED: Docusate 100 MG CAP PO SCH (22:00)
[2021-03-02 06:20] LABS: Band 5 % (5-11); Hemoglobin 11.9 g/dL (12.0-16.0); Hypochromia SLIGHT = 6-15 cells (100X) (0-5/hpf); Lymphocytes 16 % (21-51); MDiff Complete? YES; Mean Corpuscular HGB CONC 33.7 g/dL (32.0-36.0); Mean Corpuscular Hemoglobin 30.8 pg (27.0-31.0); Mean Corpuscular Volume 91.3 fL (78.0-98.0); Mean Platelet Volume 8.6 fL (7.4-10.4); Monocytes 6 % (0-10); Neutrophil 73 % (42-75); Platelet Count 152 thou/uL (130-400); Platelet Morphology Comment Appears Adequate; RBC Distribution Width 13.2 % (11.5-14.5); Red Blood Cell (RBC) Count 3.86 mill/uL (4.20-5.40)
[2021-03-02 06:23] LABS: ALT (SGPT) 25 U/L (8-55); AST (SGOT) 21 U/L (5-34); Albumin 2.9 g/dL (3.4-4.8); Alkaline Phosphatase 42 U/L (40-110); Anion Gap 14 mmol/L (10-20); BUN (Urea Nitrogen) 32 mg/dL (9.8-20.1); Bilirubin, Total 0.7 mg/dL (0.2-1.2); Calc. Creatinine Clearance 56 mL/min (70-130); Calcium 8.9 mg/dL (7.8-10.44); Carbon Dioxide 26 mmol/L (23-31); Chloride 103 mmol/L (98-107); Globulin 2.9 g/dL (2.4-3.5); Glucose 124 mg/dL (83-110); Potassium 3.8 mmol/L (3.5-5.1); Protein, Total 5.8 g/dL (5.8-8.1); Sodium 139 mmol/L (136-145)
[2021-03-02] MEDS: Carvedilol 25 MG TAB PO SCH (08:58)
[2021-03-02] MEDS: Stress 600 With Zinc 1 TAB PO SCH (08:58)
[2021-03-02] MEDS: Dronedarone HCl 400 MG TAB PO SCH ×2 (08:58→16:28)
[2021-03-02] MEDS: Aspirin 325 mg Enteric Coated Tablet PO SCH (08:58)
[2021-03-02] MEDS: Calcitriol 0.25 MCG CAP PO SCH (08:58)
[2021-03-02] MEDS: Heparin 5,000 UNITS/ML VIAL SC SCH ×2 (08:59→16:29)
[2021-03-02] MEDS: guaiFENesin ER 600 MG TAB PO SCH (08:59)
[2021-03-02] MEDS: hydrALAZINE 25 MG TAB PO SCH ×2 (08:59→16:28)
[2021-03-02] MEDS ORDERED: Docusate 100 MG CAP PO SCH (09:00)
[2021-03-02] MEDS ORDERED: Famotidine 20 MG TAB PO SCH (09:00)
[2021-03-02] MEDS ORDERED: Ondansetron ODT 4 MG TAB SL SCH (11:15)
[2021-03-02 15:44] VITALS: TEMP 98
[2021-03-02 16:29] VITALS: BP 142/74
[2021-03-02] MEDS ORDERED: Polyethylene Glycol 3350 17 GM Packet PO SCH (21:00)
== END 2021-03-02 17:22 | disposition home or self-care (01) | DRG 871 ==
LOC: ERS 07:12 → IMCU/EMU 10:01 → T4-A 02-27 18:59
PROVIDERS: ADMIT Emergency Medicine; ATTEND Emergency Medicine
PROC: 5A09357 Assistance with Respiratory Ventilation, Less than 24 Consecutive Hours, Continuous Positive Airway Pressure (ICD-10-PCS; principal; 2021-02-25)
DX: A41.9 Sepsis, unspecified organism (principal); J15.9 Unspecified bacterial pneumonia; J96.01 Acute respiratory failure with hypoxia; E87.2 Acidosis; Z66 Do not resuscitate; Z20.822 Contact with and (suspected) exposure to COVID-19; N18.30 Chronic kidney disease, stage 3 unspecified; E03.9 Hypothyroidism, unspecified; I08.0 Rheumatic disorders of both mitral and aortic valves; Z96.649 Presence of unspecified artificial hip joint; K59.00 Constipation, unspecified; I12.9 Hypertensive chronic kidney disease with stage 1 through stage 4 chronic kidney disease, or unspecified chronic kidney disease; I25.10 Atherosclerotic heart disease of native coronary artery without angina pectoris; E78.5 Hyperlipidemia, unspecified; F41.9 Anxiety disorder, unspecified; Z86.73 Personal history of transient ischemic attack (TIA), and cerebral infarction without residual deficits; Z88.5 Allergy status to narcotic agent; Z88.0 Allergy status to penicillin; Z95.1 Presence of aortocoronary bypass graft; Z90.49 Acquired absence of other specified parts of digestive tract; Z90.710 Acquired absence of both cervix and uterus; Z87.891 Personal history of nicotine dependence; R65.20 Severe sepsis without septic shock
CPT/HCPCS: 0240U; 36415; 71045; 71275; 74018; 74177; 80053; 82805; 83605; 83880; 84145; 84443; 84484; 85007; 85025; 85027; 85060; 87040; 93005; 94640; 94660; J0456; J0692; J0696; J1644; J2920; J3370; J3490; J7120; J7512; J7620; Q0162; S0028

== ENCOUNTER 2021-10-15 18:51 | Observation (INO) | payer MEDICARE ==
[2021-10-15] MEDS ORDERED: diphenhydrAMINE 50 MG/ML VIAL ONE (19:12)
[2021-10-15] MEDS ORDERED: Metoclopramide HCl 10 MG/2 ML VIAL ONE (19:12)
[2021-10-15 19:27] LABS: #Eosinphils 0.2 thou/uL (0.0-0.7); #Lymphocytes 1.5 thou/uL (1.20-3.40); #Monocytes 0.6 thou/uL (0.11-0.59); #Neutrophils 5.9 thou/uL (1.40-6.50); %Basophils 0.4 % (0.0-1.0); %Eosinophils 2.1 % (0.0-10.0); %Lymphocytes 17.8 % (21.0-51.0); %Monocytes 7.1 % (0.0-10.0); %Neutrophils 72.6 % (42.0-75.0); Hemoglobin 13.1 g/dL (12.0-16.0); Mean Corpuscular HGB CONC 32.1 g/dL (32.0-36.0); Mean Corpuscular Hemoglobin 29.7 pg (27.0-31.0); Mean Corpuscular Volume 92.4 fL (78.0-98.0); Mean Platelet Volume 9.3 fL (7.4-10.4); Platelet Count 162 thou/uL (130-400); RBC Distribution Width 13.5 % (11.5-14.5); Red Blood Cell (RBC) Count 4.42 mill/uL (4.20-5.40); White Blood Cell (WBC) Count 8.1 thou/uL (4.8-10.8)
[2021-10-15 19:47] LABS: ALT (SGPT) 9 U/L (8-55); AST (SGOT) 13 U/L (5-34); Albumin 4.1 g/dL (3.4-4.8); Alkaline Phosphatase 75 U/L (40-110); Anion Gap 16 mmol/L (10-20); BUN (Urea Nitrogen) 24 mg/dL (9.8-20.1); Bilirubin, Total 0.5 mg/dL (0.2-1.2); Calc. Creatinine Clearance 0 mL/min (70-130); Carbon Dioxide 29 mmol/L (23-31); Chloride 103 mmol/L (98-107); Estimated GFR 37; Globulin 3.3 g/dL (2.4-3.5); Glucose 102 mg/dL (83-110); Protein, Total 7.4 g/dL (5.8-8.1); Sodium 144 mmol/L (136-145)
[2021-10-15] MEDS ORDERED: hydrALAZINE 20 MG/ML VIAL ONE (21:58)
[2021-10-15] MEDS ORDERED: Ketorolac Tromethamine 30 MG/ML VIAL ONE (22:35)
[2021-10-16] MEDS ORDERED: Labetalol HCl 100 MG/20 ML VIAL SLOW IVP PRN (00:12)
[2021-10-16] MEDS ORDERED: diphenhydrAMINE 25 MG CAP PO PRN (00:14)
[2021-10-16] MEDS ORDERED: Metoclopramide HCl 10 MG TAB PO PRN (00:14)
[2021-10-16 01:43] VITALS: BMI 26.2
[2021-10-16 04:56] LABS: Anion Gap 18 mmol/L (10-20); BUN (Urea Nitrogen) 22 mg/dL (9.8-20.1); Calc. Creatinine Clearance 42 mL/min (70-130); Calcium 9.2 mg/dL (7.8-10.44); Carbon Dioxide 19 mmol/L (23-31); Chloride 107 mmol/L (98-107); Estimated GFR 42; Glucose 92 mg/dL (83-110); Potassium 4.9 mmol/L (3.5-5.1); Sodium 139 mmol/L (136-145)
[2021-10-16] MEDS ORDERED: Dronedarone HCl 400 MG TAB PO SCH (08:00)
[2021-10-16] MEDS ORDERED: cloNIDine 0.1mg/24 Hour PATCH TD SCH (09:00)
[2021-10-16] MEDS ORDERED: hydrALAZINE 25 MG TAB PO SCH (09:00)
[2021-10-16] MEDS ORDERED: B6 PO SCH (09:00)
[2021-10-16] MEDS ORDERED: Carvedilol 25 MG TAB PO SCH (09:00)
[2021-10-16] MEDS ORDERED: Gabapentin 100 MG CAP PO SCH (09:00)
[2021-10-16] MEDS ORDERED: cloNIDine 0.2mg/24 Hour PATCH TD SCH (09:00)
[2021-10-16] MEDS ORDERED: LEVOMEFOLATE CALCIUM PO SCH (09:00)
[2021-10-16] MEDS ORDERED: Fluticasone Propionate Nasal Spray 16 gm Bottle NASAL SCH (09:00)
[2021-10-16] MEDS ORDERED: Aspirin 325 mg Enteric Coated Tablet PO SCH (09:00)
[2021-10-16] MEDS ORDERED: Calcitriol 0.25 MCG CAP PO SCH (09:00)
[2021-10-16] MEDS ORDERED: Cholecalciferol 1,000 UNITS (25 MCG) TAB PO SCH (09:00)
[2021-10-16] MEDS ORDERED: B12 PO SCH (09:00)
[2021-10-16 10:55] VITALS: BP 138/84
[2021-10-16 11:19] VITALS: TEMP 98
[2021-10-16] MEDS ORDERED: Losartan 25 MG TAB PO SCH (11:45)
[2021-10-16] MEDS ORDERED: Atorvastatin Calcium 10 MG TAB PO SCH (21:00)
[2021-10-17] MEDS ORDERED: Losartan 25 MG TAB PO SCH (09:00)
[2021-10-23] MEDS ORDERED: cloNIDine 0.2mg/24 Hour PATCH TD SCH (09:00)
== END 2021-10-16 14:02 | disposition home or self-care (01) ==
LOC: ERS 18:51 → 2SW 22:18 → ERS 10-16 00:27
PROVIDERS: ADMIT Family Medicine; ATTEND Family Medicine
DX: I16.1 Hypertensive emergency (principal); I12.9 Hypertensive chronic kidney disease with stage 1 through stage 4 chronic kidney disease, or unspecified chronic kidney disease; N18.9 Chronic kidney disease, unspecified; N17.9 Acute kidney failure, unspecified; I25.10 Atherosclerotic heart disease of native coronary artery without angina pectoris; I48.0 Paroxysmal atrial fibrillation; E03.9 Hypothyroidism, unspecified; E78.5 Hyperlipidemia, unspecified; Z20.822 Contact with and (suspected) exposure to COVID-19; Z79.82 Long term (current) use of aspirin; Z79.890 Hormone replacement therapy; Z79.899 Other long term (current) drug therapy; Z88.0 Allergy status to penicillin; Z88.1 Allergy status to other antibiotic agents; Z88.6 Allergy status to analgesic agent; Z95.1 Presence of aortocoronary bypass graft
CPT/HCPCS: 70450; 80048; 80053; 84443; 84484; 85025; 85652; 93005; G0378 ×2; U0003; U0005; 36415; J0360; J1200; J1885; J2765

== ENCOUNTER 2022-04-03 08:48 | Outpatient (CLI) | payer MEDICARE | END 2022-04-03 08:49 | disposition home or self-care (01) | LOC: BICULT 08:48 | PROVIDERS: ATTEND Otolaryngology Plastic Surgery within the Head & Neck | DX: E04.2 Nontoxic multinodular goiter (principal); R59.0 Localized enlarged lymph nodes | CPT/HCPCS: 76536 ==

== ENCOUNTER 2022-05-20 10:40 | Inpatient (IN) | payer MEDICARE ==
[2022-05-20 11:27] LABS: #Eosinphils 0.2 thou/uL (0.0-0.7); #Monocytes 0.4 thou/uL (0.11-0.59); #Neutrophils 4.8 thou/uL (1.40-6.50); %Basophils 0.7 % (0.0-1.0); %Eosinophils 2.8 % (0.0-10.0); %Lymphocytes 15.6 % (21.0-51.0); %Neutrophils 74.9 % (42.0-75.0); Hemoglobin 11.5 g/dL (12.0-16.0); Mean Corpuscular HGB CONC 31.8 g/dL (32.0-36.0); Mean Corpuscular Hemoglobin 28.4 pg (27.0-31.0); Mean Corpuscular Volume 89.4 fl (78.0-98.0); Mean Platelet Volume 8.8 fL (7.4-10.4); Platelet Count 207 10x3/uL (130-400); RBC Distribution Width 13.8 % (11.5-14.5); Red Blood Cell (RBC) Count 4.05 mill/uL (4.20-5.40); White Blood Cell (WBC) Count 6.4 10x3/uL (4.8-10.8)
[2022-05-20 11:44] LABS: ALT (SGPT) 12 U/L (8-55); AST (SGOT) 22 U/L (5-34); Albumin 3.6 g/dL (3.4-4.8); Alkaline Phosphatase 64 U/L (40-110); Anion Gap 15 mmol/L (10-20); BUN (Urea Nitrogen) 19 mg/dL (9.8-20.1); Bilirubin, Total 0.5 mg/dL (0.2-1.2); Calc. Creatinine Clearance 0 mL/min (70-130); Calcium 9.4 mg/dL (7.8-10.44); Carbon Dioxide 26 mmol/L (23-31); Chloride 101 mmol/L (98-107); Estimated GFR 40; Globulin 3.5 g/dL (2.4-3.5); Glucose 156 mg/dL (83-110); Lipase 33 U/L (8-78); Protein, Total 7.1 g/dL (5.8-8.1); Sodium 138 mmol/L (136-145)
[2022-05-20] MEDS ORDERED: cefTRIAXone\\ROCEPHIN 2 GM VIAL ONE (14:33)
[2022-05-20] MEDS ORDERED: Azithromycin 500 MG VIAL ONE ×2 (14:33→15:30)
[2022-05-20] MEDS ORDERED: Aspirin Chewable 81 MG TAB ONE (14:41)
[2022-05-20] MEDS ORDERED: Ondansetron PF 4 MG/2 ML Vial IVP PRN (15:35)
[2022-05-20] MEDS ORDERED: Acetaminophen 325 MG TAB PO PRN (15:35)
[2022-05-20] MEDS ORDERED: Ondansetron ODT 4 MG TAB PO PRN (15:35)
[2022-05-20 15:44] LABS: Troponin I 0.014 ng/mL (< 0.028)
[2022-05-20 18:07] LABS: Hemoglobin A1c 5.3 % (4.0-6.0)
[2022-05-20] MEDS: Dronedarone HCl 400 MG TAB PO SCH (18:40)
[2022-05-20 18:59] LABS: Cardiac Risk 2.7 (Less than 4.5)
[2022-05-20] MEDS: hydrALAZINE 25 MG TAB PO SCH (20:14)
[2022-05-20] MEDS: Atorvastatin Calcium 10 MG TAB PO SCH (20:15)
[2022-05-20] MEDS: Gabapentin 100 MG CAP PO SCH (20:15)
[2022-05-20] MEDS: Carvedilol 25 MG TAB PO SCH (20:15)
[2022-05-20] MEDS: Heparin 5,000 UNITS/ML VIAL SC SCH (20:16)
[2022-05-20] MEDS: Fluticasone Propionate Nasal Spray 16 gm Bottle NASAL SCH (22:13)
[2022-05-20] MEDS ORDERED: NIFEdipine XL 30 MG TAB PO SCH (22:30)
[2022-05-20 22:53] VITALS: BMI 24.9
[2022-05-21] MEDS ORDERED: hydrALAZINE 25 MG TAB PO SCH ×2 (01:00→16:00)
[2022-05-21 04:06] LABS: #Eosinphils 0.2 thou/uL (0.0-0.7); #Lymphocytes 1.1 thou/uL (1.20-3.40); #Monocytes 0.5 thou/uL (0.11-0.59); #Neutrophils 3.1 thou/uL (1.40-6.50); %Basophils 0.1 % (0.0-1.0); %Eosinophils 3.7 % (0.0-10.0); %Lymphocytes 22.2 % (21.0-51.0); %Monocytes 9.8 % (0.0-10.0); %Neutrophils 64.2 % (42.0-75.0); Hemoglobin 10.7 g/dL (12.0-16.0); Mean Corpuscular HGB CONC 32.9 g/dL (32.0-36.0); Mean Corpuscular Hemoglobin 29.4 pg (27.0-31.0); Mean Corpuscular Volume 89.5 fl (78.0-98.0); Mean Platelet Volume 8.3 fL (7.4-10.4); Platelet Count 184 10x3/uL (130-400); RBC Distribution Width 13.9 % (11.5-14.5); Red Blood Cell (RBC) Count 3.64 mill/uL (4.20-5.40); White Blood Cell (WBC) Count 4.9 10x3/uL (4.8-10.8)
[2022-05-21 04:31] LABS: ALT (SGPT) 8 U/L (8-55); AST (SGOT) 12 U/L (5-34); Albumin 3.2 g/dL (3.4-4.8); Alkaline Phosphatase 57 U/L (40-110); Anion Gap 13 mmol/L (10-20); BUN (Urea Nitrogen) 18 mg/dL (9.8-20.1); Bilirubin, Total 0.3 mg/dL (0.2-1.2); Calc. Creatinine Clearance 39 mL/min (70-130); Carbon Dioxide 26 mmol/L (23-31); Chloride 105 mmol/L (98-107); Estimated GFR 43; Globulin 2.8 g/dL (2.4-3.5); Glucose 91 mg/dL (83-110); Potassium 3.6 mmol/L (3.5-5.1); Sodium 140 mmol/L (136-145)
[2022-05-21] MEDS: NIFEdipine XL 30 MG TAB PO SCH (09:18)
[2022-05-21] MEDS: Gabapentin 100 MG CAP PO SCH ×2 (09:18→19:49)
[2022-05-21] MEDS: Dronedarone HCl 400 MG TAB PO SCH ×2 (09:19→16:17)
[2022-05-21] MEDS: hydrALAZINE 25 MG TAB PO SCH ×2 (09:19→19:50)
[2022-05-21] MEDS: Bupropion 150 MG XL TAB PO SCH (09:19)
[2022-05-21] MEDS: Heparin 5,000 UNITS/ML VIAL SC SCH ×3 (09:19→19:50)
[2022-05-21] MEDS: Calcitriol 0.25 MCG CAP PO SCH (09:19)
[2022-05-21] MEDS: Carvedilol 25 MG TAB PO SCH ×2 (09:19→19:50)
[2022-05-21] MEDS: Fluticasone Propionate Nasal Spray 16 gm Bottle NASAL SCH ×2 (09:20→19:51)
[2022-05-21] MEDS: Thyroid 60 MG TAB PO SCH (09:32)
[2022-05-21] MEDS ORDERED: Levofloxacin 750 mg/D5W 500 MG in Premix Bag 1 BAG IVPB SCH (11:15)
[2022-05-21 11:52] LABS: Bacteria/HPF 2+ HPF (None Seen); Bilirubin Negative (Negative); Blood, Urine Negative (Negative); Clarity Clear (Clear); Glucose, Urine (Dipstick) Normal (Negative); Ketone, Urine Negative (Negative); Leukocyte 500 Leu/uL (Negative); Nitrite Negative (Negative); Protein, Urine (Dipstick) Negative (Neg-Trace); RBC/HPF 0-3 HPF (0-3); Specific Gravity, Urine 1.013 (1.002-1.036); Urobilinogen Normal mg/dL (Less than 2); pH, Urine 6.5 (5.0-9.0)
[2022-05-21] MEDS ORDERED: Ipratropium/Albuterol 3 ML NEB NEB PRN (12:26)
[2022-05-21] MEDS: Atorvastatin Calcium 10 MG TAB PO SCH (19:50)
[2022-05-21] MEDS ORDERED: Doxycycline 100 MG CAP PO SCH (21:00)
[2022-05-22] MEDS: Melatonin 3 MG TAB PO PRN ×2 (00:43→21:21)
[2022-05-22 06:55] LABS: #Eosinphils 0.2 thou/uL (0.0-0.7); #Lymphocytes 1.1 thou/uL (1.20-3.40); #Monocytes 0.5 thou/uL (0.11-0.59); #Neutrophils 3.4 thou/uL (1.40-6.50); %Basophils 0.7 % (0.0-1.0); %Lymphocytes 21.3 % (21.0-51.0); %Monocytes 9.3 % (0.0-10.0); %Neutrophils 64.8 % (42.0-75.0); Hemoglobin 11.1 g/dL (12.0-16.0); Mean Corpuscular HGB CONC 32.3 g/dL (32.0-36.0); Mean Corpuscular Hemoglobin 29.1 pg (27.0-31.0); Mean Corpuscular Volume 90.1 fl (78.0-98.0); Mean Platelet Volume 8.1 fL (7.4-10.4); Platelet Count 205 10x3/uL (130-400); RBC Distribution Width 13.8 % (11.5-14.5); Red Blood Cell (RBC) Count 3.83 mill/uL (4.20-5.40); White Blood Cell (WBC) Count 5.3 10x3/uL (4.8-10.8)
[2022-05-22 07:16] LABS: ALT (SGPT) 10 U/L (8-55); AST (SGOT) 15 U/L (5-34); Albumin 3.4 g/dL (3.4-4.8); Alkaline Phosphatase 59 U/L (40-110); Anion Gap 14 mmol/L (10-20); BUN (Urea Nitrogen) 19 mg/dL (9.8-20.1); Bilirubin, Total 0.4 mg/dL (0.2-1.2); Calc. Creatinine Clearance 35 mL/min (70-130); Calcium 9.1 mg/dL (7.8-10.44); Carbon Dioxide 24 mmol/L (23-31); Chloride 102 mmol/L (98-107); Estimated GFR 38; Globulin 2.9 g/dL (2.4-3.5); Glucose 91 mg/dL (83-110); Potassium 3.8 mmol/L (3.5-5.1); Protein, Total 6.3 g/dL (5.8-8.1); Sodium 136 mmol/L (136-145)
[2022-05-22] MEDS: Bupropion 150 MG XL TAB PO SCH (08:49)
[2022-05-22] MEDS: Calcitriol 0.25 MCG CAP PO SCH (08:49)
[2022-05-22] MEDS: Dronedarone HCl 400 MG TAB PO SCH ×2 (08:49→16:49)
[2022-05-22] MEDS: hydrALAZINE 25 MG TAB PO SCH ×3 (08:49→20:20)
[2022-05-22] MEDS: Carvedilol 25 MG TAB PO SCH ×2 (08:50→20:20)
[2022-05-22] MEDS: Gabapentin 100 MG CAP PO SCH ×2 (08:50→20:20)
[2022-05-22] MEDS: Heparin 5,000 UNITS/ML VIAL SC SCH ×3 (08:50→20:21)
[2022-05-22] MEDS: NIFEdipine XL 30 MG TAB PO SCH (08:50)
[2022-05-22] MEDS: Fluticasone Propionate Nasal Spray 16 gm Bottle NASAL SCH ×2 (08:50→20:24)
[2022-05-22] MEDS: Thyroid 60 MG TAB PO SCH (08:50)
[2022-05-22] MEDS: Calcium Carbonate 500 MG ChewTAB PO PRN (13:19)
[2022-05-22] MEDS: Ibuprofen 200 MG TAB PO PRN (13:19)
[2022-05-22] MEDS ORDERED: diphenhydrAMINE 25 MG CAP PO SCH ×2 (14:45→17:45)
[2022-05-22] MEDS ORDERED: NIFEdipine XL 30 MG TAB PO SCH (16:00)
[2022-05-22] MEDS: Atorvastatin Calcium 10 MG TAB PO SCH (20:20)
[2022-05-22] MEDS ORDERED: hydrALAZINE 25 MG TAB PO SCH (21:00)
[2022-05-22] MEDS ORDERED: Gabapentin 100 MG CAP PO SCH (21:00)
[2022-05-23] MEDS: Calcium Carbonate 500 MG ChewTAB PO PRN (03:37)
[2022-05-23] MEDS: Ibuprofen 200 MG TAB PO PRN (03:37)
[2022-05-23 06:32] LABS: #Eosinphils 0.2 thou/uL (0.0-0.7); #Lymphocytes 1.1 thou/uL (1.20-3.40); #Monocytes 0.5 thou/uL (0.11-0.59); #Neutrophils 2.7 thou/uL (1.40-6.50); %Basophils 0.5 % (0.0-1.0); %Eosinophils 5.4 % (0.0-10.0); %Monocytes 10.7 % (0.0-10.0); %Neutrophils 59.4 % (42.0-75.0); Hemoglobin 11.2 g/dL (12.0-16.0); Mean Corpuscular HGB CONC 32.7 g/dL (32.0-36.0); Mean Corpuscular Hemoglobin 29.5 pg (27.0-31.0); Mean Corpuscular Volume 90.1 fl (78.0-98.0); Mean Platelet Volume 8.1 fL (7.4-10.4); Platelet Count 181 10x3/uL (130-400); RBC Distribution Width 13.7 % (11.5-14.5); Red Blood Cell (RBC) Count 3.79 mill/uL (4.20-5.40); White Blood Cell (WBC) Count 4.6 10x3/uL (4.8-10.8)
[2022-05-23 06:55] LABS: ALT (SGPT) 10 U/L (8-55); AST (SGOT) 15 U/L (5-34); Albumin 3.1 g/dL (3.4-4.8); Alkaline Phosphatase 55 U/L (40-110); Anion Gap 14 mmol/L (10-20); BUN (Urea Nitrogen) 20 mg/dL (9.8-20.1); Bilirubin, Total 0.5 mg/dL (0.2-1.2); Calc. Creatinine Clearance 36 mL/min (70-130); Calcium 9.4 mg/dL (7.8-10.44); Carbon Dioxide 26 mmol/L (23-31); Chloride 99 mmol/L (98-107); Estimated GFR 39; Globulin 2.8 g/dL (2.4-3.5); Glucose 88 mg/dL (83-110); Potassium 3.8 mmol/L (3.5-5.1); Protein, Total 5.9 g/dL (5.8-8.1); Sodium 135 mmol/L (136-145)
[2022-05-23] MEDS: Dronedarone HCl 400 MG TAB PO SCH ×2 (07:50→16:21)
[2022-05-23] MEDS: Gabapentin 100 MG CAP PO SCH ×2 (07:51→20:47)
[2022-05-23] MEDS: hydrALAZINE 25 MG TAB PO SCH ×3 (07:51→20:46)
[2022-05-23] MEDS: Heparin 5,000 UNITS/ML VIAL SC SCH ×3 (07:52→20:46)
[2022-05-23] MEDS: Carvedilol 25 MG TAB PO SCH ×2 (07:52→20:46)
[2022-05-23] MEDS: NIFEdipine XL 60 MG TAB PO SCH (07:52)
[2022-05-23] MEDS: Bupropion 150 MG XL TAB PO SCH (07:52)
[2022-05-23] MEDS: Fluticasone Propionate Nasal Spray 16 gm Bottle NASAL SCH ×2 (07:52→20:48)
[2022-05-23] MEDS: Calcitriol 0.25 MCG CAP PO SCH (07:52)
[2022-05-23] MEDS: Thyroid 60 MG TAB PO SCH (08:00)
[2022-05-23] MEDS: Ipratropium/Albuterol 3 ML NEB EZPAP SCH ×4 (10:47→21:53)
[2022-05-23] MEDS ORDERED: cloNIDine 0.2mg/24 Hour PATCH TD SCH (12:00)
[2022-05-23] MEDS: Atorvastatin Calcium 10 MG TAB PO SCH (20:46)
[2022-05-23] MEDS: Melatonin 3 MG TAB PO PRN (20:49)
[2022-05-24] MEDS: Ibuprofen 200 MG TAB PO PRN (02:19)
[2022-05-24] MEDS: Calcium Carbonate 500 MG ChewTAB PO PRN (02:20)
[2022-05-24] MEDS: Ipratropium/Albuterol 3 ML NEB EZPAP SCH ×3 (02:36→10:52)
[2022-05-24 07:38] LABS: #Eosinphils 0.2 thou/uL (0.0-0.7); #Lymphocytes 0.8 thou/uL (1.20-3.40); #Monocytes 0.5 thou/uL (0.11-0.59); %Basophils 0.7 % (0.0-1.0); %Eosinophils 3.6 % (0.0-10.0); %Lymphocytes 16.9 % (21.0-51.0); %Monocytes 11.9 % (0.0-10.0); %Neutrophils 66.9 % (42.0-75.0); Hemoglobin 11.2 g/dL (12.0-16.0); Mean Corpuscular HGB CONC 33.1 g/dL (32.0-36.0); Mean Corpuscular Hemoglobin 29.7 pg (27.0-31.0); Mean Corpuscular Volume 89.8 fl (78.0-98.0); Mean Platelet Volume 7.9 fL (7.4-10.4); Platelet Count 197 10x3/uL (130-400); RBC Distribution Width 13.5 % (11.5-14.5); Red Blood Cell (RBC) Count 3.78 mill/uL (4.20-5.40); White Blood Cell (WBC) Count 4.5 10x3/uL (4.8-10.8)
[2022-05-24] MEDS: Heparin 5,000 UNITS/ML VIAL SC SCH (08:03)
[2022-05-24] MEDS: Thyroid 60 MG TAB PO SCH (08:03)
[2022-05-24] MEDS: Calcitriol 0.25 MCG CAP PO SCH (08:03)
[2022-05-24] MEDS: Gabapentin 100 MG CAP PO SCH (08:03)
[2022-05-24] MEDS: Carvedilol 25 MG TAB PO SCH (08:03)
[2022-05-24] MEDS: Bupropion 150 MG XL TAB PO SCH (08:03)
[2022-05-24] MEDS: Dronedarone HCl 400 MG TAB PO SCH (08:03)
[2022-05-24] MEDS: NIFEdipine XL 60 MG TAB PO SCH (08:04)
[2022-05-24 08:07] LABS: ALT (SGPT) 11 U/L (8-55); AST (SGOT) 17 U/L (5-34); Albumin 3.1 g/dL (3.4-4.8); Alkaline Phosphatase 52 U/L (40-110); Anion Gap 13 mmol/L (10-20); BUN (Urea Nitrogen) 25 mg/dL (9.8-20.1); Bilirubin, Total 0.4 mg/dL (0.2-1.2); Calc. Creatinine Clearance 36 mL/min (70-130); Calcium 9.6 mg/dL (7.8-10.44); Carbon Dioxide 27 mmol/L (23-31); Chloride 98 mmol/L (98-107); Estimated GFR 38; Globulin 2.9 g/dL (2.4-3.5); Glucose 87 mg/dL (83-110); Potassium 4.2 mmol/L (3.5-5.1); Sodium 134 mmol/L (136-145)
[2022-05-24] MEDS: Fluticasone Propionate Nasal Spray 16 gm Bottle NASAL SCH (08:07)
[2022-05-24] MEDS: hydrALAZINE 25 MG TAB PO SCH (08:07)
[2022-05-24] MEDS ORDERED: Senokot S 8.6-50 MG TAB PO SCH (09:00)
[2022-05-24 12:10] VITALS: BP 155/59
[2022-05-24 12:13] VITALS: TEMP 98.2
[2022-05-27] MEDS ORDERED: cloNIDine 0.2mg/24 Hour PATCH TD SCH (09:00)
== END 2022-05-24 14:13 | disposition home or self-care (01) | DRG 194 ==
LOC: ERS 10:40 → 2NO 14:47 → T4-B 05-21 23:15 → OBSVTOIN 05-22 08:44
PROVIDERS: ADMIT Student in an Organized Health Care Education/Training Program; ATTEND Student in an Organized Health Care Education/Training Program
DX: J18.9 Pneumonia, unspecified organism (principal); N39.0 Urinary tract infection, site not specified; Z20.822 Contact with and (suspected) exposure to COVID-19; R42 Dizziness and giddiness; D63.1 Anemia in chronic kidney disease; R91.8 Other nonspecific abnormal finding of lung field; I12.9 Hypertensive chronic kidney disease with stage 1 through stage 4 chronic kidney disease, or unspecified chronic kidney disease; E03.9 Hypothyroidism, unspecified; I73.9 Peripheral vascular disease, unspecified; R07.89 Other chest pain; E04.1 Nontoxic single thyroid nodule; I35.0 Nonrheumatic aortic (valve) stenosis; E78.00 Pure hypercholesterolemia, unspecified; I25.10 Atherosclerotic heart disease of native coronary artery without angina pectoris; N18.9 Chronic kidney disease, unspecified; F41.9 Anxiety disorder, unspecified; L29.9 Pruritus, unspecified; J32.9 Chronic sinusitis, unspecified; Z86.73 Personal history of transient ischemic attack (TIA), and cerebral infarction without residual deficits; Z88.1 Allergy status to other antibiotic agents; Z88.0 Allergy status to penicillin; Z85.820 Personal history of malignant melanoma of skin; Z79.899 Other long term (current) drug therapy; Z79.82 Long term (current) use of aspirin; Z95.1 Presence of aortocoronary bypass graft; Z90.49 Acquired absence of other specified parts of digestive tract; Z90.710 Acquired absence of both cervix and uterus; Z80.9 Family history of malignant neoplasm, unspecified; Z87.891 Personal history of nicotine dependence; Z88.6 Allergy status to analgesic agent
CPT/HCPCS: 36415; 36416; 70450; 71045; 71275; 80053; 80061; 81001; 83036; 83690; 84443; 84484; 85025; 93005; 94640; 96365; 96367; 96372; 96375; G0378; J0696; J1644; J1956; J2405; J7620; Q0162; Q9967; U0003; U0005

== ENCOUNTER 2022-06-13 08:45 | Outpatient (CLI) | payer MEDICARE | END 2022-06-13 08:46 | disposition home or self-care (01) | LOC: PET 08:45 | PROVIDERS: ATTEND Internal Medicine Critical Care Medicine | DX: R91.8 Other nonspecific abnormal finding of lung field (principal); C34.91 Malignant neoplasm of unspecified part of right bronchus or lung; C78.1 Secondary malignant neoplasm of mediastinum; C79.89 Secondary malignant neoplasm of other specified sites | CPT/HCPCS: 78815; A9552 ==

== ENCOUNTER 2022-06-18 09:05 | Inpatient (IN) | payer MEDICARE ==
[2022-06-18 10:38] LABS: #Eosinphils 0.2 thou/uL (0.0-0.7); #Lymphocytes 0.8 thou/uL (1.20-3.40); #Monocytes 0.4 thou/uL (0.11-0.59); #Neutrophils 3.8 thou/uL (1.40-6.50); %Basophils 0.4 % (0.0-1.0); %Eosinophils 2.9 % (0.0-10.0); %Lymphocytes 16.1 % (21.0-51.0); %Neutrophils 72.6 % (42.0-75.0); Hemoglobin 11.6 g/dL (12.0-16.0); Mean Corpuscular HGB CONC 31.5 g/dL (32.0-36.0); Mean Corpuscular Hemoglobin 28.6 pg (27.0-31.0); Mean Corpuscular Volume 90.9 fl (78.0-98.0); Mean Platelet Volume 8.3 fL (7.4-10.4); Platelet Count 212 10x3/uL (130-400); RBC Distribution Width 14.3 % (11.5-14.5); Red Blood Cell (RBC) Count 4.06 mill/uL (4.20-5.40); White Blood Cell (WBC) Count 5.2 10x3/uL (4.8-10.8)
[2022-06-18 10:43] LABS: ALT (SGPT) 9 U/L (8-55); AST (SGOT) 14 U/L (5-34); Albumin 3.5 g/dL (3.4-4.8); Alkaline Phosphatase 70 U/L (40-110); Anion Gap 13 mmol/L (10-20); BUN (Urea Nitrogen) 19 mg/dL (9.8-20.1); Bilirubin, Total 0.6 mg/dL (0.2-1.2); Calc. Creatinine Clearance 0 mL/min (70-130); Calcium 9.4 mg/dL (7.8-10.44); Carbon Dioxide 31 mmol/L (23-31); Chloride 101 mmol/L (98-107); Estimated GFR 43; Glucose 104 mg/dL (83-110); Potassium 3.9 mmol/L (3.5-5.1); Protein, Total 6.5 g/dL (5.8-8.1); Sodium 141 mmol/L (136-145)
[2022-06-18 13:48] LABS: Troponin I Less than 0.010 ng/mL (< 0.028)
[2022-06-18 14:00] LABS: Bacteria/HPF None Seen HPF (None Seen); Bilirubin Negative (Negative); Blood, Urine Negative (Negative); Clarity Clear (Clear); Glucose, Urine (Dipstick) Normal (Negative); Ketone, Urine Negative (Negative); Leukocyte 25 Leu/uL (Negative); Nitrite Negative (Negative); Protein, Urine (Dipstick) 20 mg/dL (Neg-Trace); RBC/HPF 0-3 HPF (0-3); Specific Gravity, Urine 1.016 (1.002-1.036); Urobilinogen Normal mg/dL (Less than 2); WBC/HPF 0-3 HPF (0-3); pH, Urine 6.5 (5.0-9.0)
[2022-06-18] MEDS ORDERED: Ipratropium/Albuterol 3 ML NEB NEB PRN (14:04)
[2022-06-18 14:43] VITALS: BMI 24.9
[2022-06-18] MEDS ORDERED: Fluticasone Propionate Nasal Spray 16 gm Bottle NASAL PRN (15:16)
[2022-06-18] MEDS ORDERED: hydrALAZINE 20 MG/ML VIAL SLOW IVP PRN (15:20)
[2022-06-18 16:42] LABS: Troponin I 0.014 ng/mL (< 0.028)
[2022-06-18] MEDS ORDERED: hydrALAZINE 25 MG TAB PO SCH (17:30)
[2022-06-18] MEDS: Dronedarone HCl 400 MG TAB PO SCH (17:38)
[2022-06-18] MEDS: Mometasone 200 MCG/Formoterol 5 MCG 120 PUFF INHALER INH SCH (17:45)
[2022-06-18] MEDS: hydrALAZINE 25 MG TAB PO SCH (21:12)
[2022-06-18] MEDS: Atorvastatin Calcium 10 MG TAB PO SCH (21:12)
[2022-06-18] MEDS: Carvedilol 25 MG TAB PO SCH (21:12)
[2022-06-18] MEDS: NIFEdipine XL 60 MG TAB PO SCH (21:13)
[2022-06-18] MEDS: Gabapentin 100 MG CAP PO SCH (21:13)
[2022-06-18] MEDS: Melatonin 3 MG TAB PO PRN (22:27)
[2022-06-19] MEDS ORDERED: Ondansetron ODT 4 MG TAB PO PRN (02:48)
[2022-06-19 05:41] LABS: #Eosinphils 0.1 thou/uL (0.0-0.7); #Lymphocytes 0.8 thou/uL (1.20-3.40); #Monocytes 0.6 thou/uL (0.11-0.59); #Neutrophils 3.9 thou/uL (1.40-6.50); %Eosinophils 2.6 % (0.0-10.0); %Lymphocytes 14.9 % (21.0-51.0); %Monocytes 10.8 % (0.0-10.0); %Neutrophils 71.8 % (42.0-75.0); Mean Corpuscular HGB CONC 31.7 g/dL (32.0-36.0); Mean Corpuscular Hemoglobin 28.6 pg (27.0-31.0); Mean Corpuscular Volume 90.4 fl (78.0-98.0); Mean Platelet Volume 8.2 fL (7.4-10.4); Platelet Count 182 10x3/uL (130-400); RBC Distribution Width 14.3 % (11.5-14.5); Red Blood Cell (RBC) Count 3.85 mill/uL (4.20-5.40); White Blood Cell (WBC) Count 5.4 10x3/uL (4.8-10.8)
[2022-06-19] MEDS: Thyroid 60 MG TAB PO SCH (05:45)
[2022-06-19 05:54] LABS: Anion Gap 14 mmol/L (10-20); BUN (Urea Nitrogen) 18 mg/dL (9.8-20.1); Calc. Creatinine Clearance 38 mL/min (70-130); Calcium 8.7 mg/dL (7.8-10.44); Carbon Dioxide 26 mmol/L (23-31); Chloride 101 mmol/L (98-107); Estimated GFR 41; Glucose 96 mg/dL (83-110); Potassium 3.8 mmol/L (3.5-5.1); Sodium 137 mmol/L (136-145)
[2022-06-19] MEDS: Mometasone 200 MCG/Formoterol 5 MCG 120 PUFF INHALER INH SCH ×2 (06:29→18:56)
[2022-06-19] MEDS: Carvedilol 25 MG TAB PO SCH ×2 (08:54→21:26)
[2022-06-19] MEDS: Gabapentin 100 MG CAP PO SCH ×2 (08:54→21:27)
[2022-06-19] MEDS: Cholecalciferol 1,000 UNITS (25 MCG) TAB PO SCH (08:55)
[2022-06-19] MEDS: Calcitriol 0.25 MCG CAP PO SCH (08:56)
[2022-06-19] MEDS: Bupropion 150 MG XL TAB PO SCH (08:57)
[2022-06-19] MEDS: Ascorbic Acid 500 mg Chewable Tablet PO SCH (08:57)
[2022-06-19] MEDS: Dronedarone HCl 400 MG TAB PO SCH ×2 (08:57→16:22)
[2022-06-19] MEDS: hydrALAZINE 25 MG TAB PO SCH ×3 (08:57→21:26)
[2022-06-19] MEDS ORDERED: Aspirin 81 mg Enteric Coated Tablet PO SCH (09:00)
[2022-06-19] MEDS ORDERED: Aspirin 325 mg Enteric Coated Tablet PO SCH (09:00)
[2022-06-19] MEDS ORDERED: Iopamidol-370 76% 500 ML 1 ML ONE (09:08)
[2022-06-19] MEDS ORDERED: Calcium Carbonate 500 MG ChewTAB PO PRN (09:21)
[2022-06-19] MEDS ORDERED: Lactated Ringer's 1,000 ML IV SCH ×2 (09:30→11:15)
[2022-06-19] MEDS: Ondansetron ODT 4 MG TAB PO PRN ×2 (11:00→20:25)
[2022-06-19] MEDS ORDERED: Furosemide 20 MG/2 ML VIAL SLOW IVP SCH (15:30)
[2022-06-19] MEDS: Atorvastatin Calcium 10 MG TAB PO SCH (21:27)
[2022-06-19] MEDS: NIFEdipine XL 60 MG TAB PO SCH (23:07)
[2022-06-19] MEDS: Melatonin 3 MG TAB PO PRN (23:07)
[2022-06-20] MEDS: Ondansetron ODT 4 MG TAB PO PRN ×2 (04:31→15:46)
[2022-06-20] MEDS: Thyroid 60 MG TAB PO SCH (05:06)
[2022-06-20] MEDS: Mometasone 200 MCG/Formoterol 5 MCG 120 PUFF INHALER INH SCH (06:30)
[2022-06-20] MEDS ORDERED: cloNIDine 0.2mg/24 Hour PATCH TD SCH (09:00)
[2022-06-20] MEDS: Calcitriol 0.25 MCG CAP PO SCH (09:41)
[2022-06-20] MEDS: Gabapentin 100 MG CAP PO SCH (09:41)
[2022-06-20 09:42] LABS: #Eosinphils 0.2 thou/uL (0.0-0.7); #Lymphocytes 1.2 thou/uL (1.20-3.40); #Monocytes 0.8 thou/uL (0.11-0.59); #Neutrophils 5.2 thou/uL (1.40-6.50); %Basophils 0.4 % (0.0-1.0); %Lymphocytes 15.5 % (21.0-51.0); %Monocytes 11.1 % (0.0-10.0); Hemoglobin 12.3 g/dL (12.0-16.0); Mean Corpuscular HGB CONC 31.8 g/dL (32.0-36.0); Mean Corpuscular Hemoglobin 28.8 pg (27.0-31.0); Mean Corpuscular Volume 90.7 fl (78.0-98.0); Mean Platelet Volume 7.9 fL (7.4-10.4); Platelet Count 258 10x3/uL (130-400); RBC Distribution Width 14.2 % (11.5-14.5); Red Blood Cell (RBC) Count 4.28 mill/uL (4.20-5.40); White Blood Cell (WBC) Count 7.4 10x3/uL (4.8-10.8)
[2022-06-20] MEDS: Dronedarone HCl 400 MG TAB PO SCH (09:42)
[2022-06-20] MEDS: Cholecalciferol 1,000 UNITS (25 MCG) TAB PO SCH (09:42)
[2022-06-20] MEDS: Ascorbic Acid 500 mg Chewable Tablet PO SCH (09:42)
[2022-06-20] MEDS: hydrALAZINE 25 MG TAB PO SCH ×2 (09:42→15:46)
[2022-06-20] MEDS: Carvedilol 25 MG TAB PO SCH (09:43)
[2022-06-20] MEDS: Bupropion 150 MG XL TAB PO SCH (09:43)
[2022-06-20 09:48] LABS: ALT (SGPT) 10 U/L (8-55); AST (SGOT) 14 U/L (5-34); Albumin 3.4 g/dL (3.4-4.8); Alkaline Phosphatase 62 U/L (40-110); Anion Gap 17 mmol/L (10-20); BUN (Urea Nitrogen) 20 mg/dL (9.8-20.1); Bilirubin, Total 0.5 mg/dL (0.2-1.2); Calc. Creatinine Clearance 32 mL/min (70-130); Calcium 9.5 mg/dL (7.8-10.44); Carbon Dioxide 26 mmol/L (23-31); Chloride 99 mmol/L (98-107); Estimated GFR 34; Globulin 3.1 g/dL (2.4-3.5); Glucose 106 mg/dL (83-110); Protein, Total 6.5 g/dL (5.8-8.1); Sodium 138 mmol/L (136-145)
[2022-06-20 16:08] VITALS: BP 144/63; TEMP 98.5
== END 2022-06-20 16:50 | disposition home or self-care (01) | DRG 180 ==
LOC: ERS 09:05 → 2SW 12:11 → OBSVTOIN 06-19 09:24
PROVIDERS: ADMIT Student in an Organized Health Care Education/Training Program; ATTEND Student in an Organized Health Care Education/Training Program
DX: C34.11 Malignant neoplasm of upper lobe, right bronchus or lung (principal); J96.01 Acute respiratory failure with hypoxia; Z20.822 Contact with and (suspected) exposure to COVID-19; N18.30 Chronic kidney disease, stage 3 unspecified; I12.9 Hypertensive chronic kidney disease with stage 1 through stage 4 chronic kidney disease, or unspecified chronic kidney disease; R94.31 Abnormal electrocardiogram [ECG] [EKG]; D63.1 Anemia in chronic kidney disease; F41.9 Anxiety disorder, unspecified; I25.10 Atherosclerotic heart disease of native coronary artery without angina pectoris; E78.5 Hyperlipidemia, unspecified; I73.9 Peripheral vascular disease, unspecified; Z95.1 Presence of aortocoronary bypass graft; Z86.73 Personal history of transient ischemic attack (TIA), and cerebral infarction without residual deficits; Z79.899 Other long term (current) drug therapy; Z87.891 Personal history of nicotine dependence; Z87.01 Personal history of pneumonia (recurrent); Z88.6 Allergy status to analgesic agent; Z88.1 Allergy status to other antibiotic agents; Z88.0 Allergy status to penicillin; Z90.89 Acquired absence of other organs; Z90.710 Acquired absence of both cervix and uterus; Z80.8 Family history of malignant neoplasm of other organs or systems; Z90.5 Acquired absence of kidney; Z85.820 Personal history of malignant melanoma of skin; Z90.49 Acquired absence of other specified parts of digestive tract; Z98.890 Other specified postprocedural states
CPT/HCPCS: 36415; 36416; 71045; 71275; 80048; 80053; 81003; 81015; 83880; 84484; 85025; 85379; 93005; 93010; 93306; 94640; 96372; G0378; J1650; J1940; J7120; J7611; Q0162; Q9967; U0003; U0005

== ENCOUNTER 2022-07-05 08:22 | Day surgery (SDC) | payer MEDICARE ==
[2022-07-03 12:55] VITALS: BMI 24.1
[2022-07-05 08:52] LABS: PTT 31.6 sec (22.9-36.1); Prothrombin Time 13.2 sec (12.0-14.7)
[2022-07-05 09:50] VITALS: BP 130/68; TEMP 97.6
== END 2022-07-05 14:10 | disposition home or self-care (01) ==
LOC: CT 08:22
PROVIDERS: ATTEND Internal Medicine Critical Care Medicine
PROC: 0BBC3ZX Excision of Right Upper Lung Lobe, Percutaneous Approach, Diagnostic (ICD-10-PCS; principal; 2022-07-05)
DX: C34.11 Malignant neoplasm of upper lobe, right bronchus or lung (principal); I10 Essential (primary) hypertension; E78.5 Hyperlipidemia, unspecified; I25.10 Atherosclerotic heart disease of native coronary artery without angina pectoris; I73.9 Peripheral vascular disease, unspecified; Z95.1 Presence of aortocoronary bypass graft; Z86.73 Personal history of transient ischemic attack (TIA), and cerebral infarction without residual deficits; Z85.820 Personal history of malignant melanoma of skin; Z88.0 Allergy status to penicillin; Z88.1 Allergy status to other antibiotic agents; Z88.8 Allergy status to other drugs, medicaments and biological substances; Z79.890 Hormone replacement therapy; Z79.899 Other long term (current) drug therapy; Z87.891 Personal history of nicotine dependence
CPT/HCPCS: 32408; 71045; 77012; 85610; 85730; 88305; 88333; 88341; 88342

== ENCOUNTER 2022-07-26 12:40 | Inpatient (IN) | payer MEDICARE ==
[2022-07-26 13:16] LABS: Actual Bicarbonate (HCO3v) 31.8 mEq/L (22-28); Base Excess 4.6 mEq/L (-2.0 to +3.0); Calcium, Ionized (venous) 1.12 mmol/L (1.16-1.32); Chloride (VBG) 91 mmol/L (98-106); Hematocrit-VBG 41 % (36.0-47.0); Hemoglobin (Hb) 13.9 g/dL (11.7-16.1); Potassium (VBG) 4.89 mmol/L (3.70-5.30); Sodium 130.4 mmol/L (133-146); pH (venous) 7.354 (7.32-7.43)
[2022-07-26 13:39] LABS: Bilirubin Negative (Negative); Blood, Urine Negative (Negative); Clarity Clear (Clear); Glucose, Urine (Dipstick) Normal (Negative); Ketone, Urine Negative (Negative); Leukocyte Negative Leu/uL (Negative); Nitrite Negative (Negative); Protein, Urine (Dipstick) 20 mg/dL (Neg-Trace); pH, Urine 5.5 (5.0-9.0)
[2022-07-26 13:44] LABS: Actual Bicarbonate (HCO3a) 35.6 mEq/L (22-28); Analyzer IN Cardio ER; Base Excess (BEa) 5.4 mEq/L (-2.0 to +3.0); Calcium, Ionized (arterial) 1.23 mmol/L (1.12-1.30); Carboxyhemoglobin (COHb) 0.4 gm% (0.0-3.0); Hematocrit-ABG 38 % (36.0-47.0); Hemoglobin (Hb) 12.8 g/dL (12.0-16.0); O2 Tension (PaO2), arterial 67.6 mmHg (> 60.0); Potassium - ABG Lab 4.46 mmol/L (3.70-5.30); pH, Arterial 7.241 (7.35-7.45)
[2022-07-26 13:45] LABS: #Eosinphils 0.1 thou/uL (0.0-0.7); #Lymphocytes 0.9 thou/uL (1.20-3.40); #Monocytes 0.8 thou/uL (0.11-0.59); #Neutrophils 8.4 thou/uL (1.40-6.50); %Eosinophils 1.1 % (0.0-10.0); %Lymphocytes 8.7 % (21.0-51.0); %Monocytes 8.1 % (0.0-10.0); %Neutrophils 82.1 % (42.0-75.0); Hemoglobin 13.5 g/dL (12.0-16.0); Mean Corpuscular HGB CONC 32.9 g/dL (32.0-36.0); Mean Corpuscular Hemoglobin 30.1 pg (27.0-31.0); Mean Corpuscular Volume 91.3 fl (78.0-98.0); Mean Platelet Volume 8.2 fL (7.4-10.4); Platelet Count 224 10x3/uL (130-400); RBC Distribution Width 13.6 % (11.5-14.5); Red Blood Cell (RBC) Count 4.51 mill/uL (4.20-5.40); White Blood Cell (WBC) Count 10.2 10x3/uL (4.8-10.8)
[2022-07-26 13:45] LABS: ALV-art Gradient 254.325 mmHg (0-20); CO2 Tension 84.7 mmHg (35.0-45.0); Puncture Site RRA
[2022-07-26 13:56] LABS: INR-International Normal Ratio 0.9; PTT 27.2 sec (22.9-36.1); Prothrombin Time 12.5 sec (12.0-14.7)
[2022-07-26 14:03] LABS: ALT (SGPT) 20 U/L (8-55); AST (SGOT) 24 U/L (5-34); Albumin 3.4 g/dL (3.4-4.8); Alkaline Phosphatase 66 U/L (40-110); Anion Gap 15 mmol/L (10-20); BUN (Urea Nitrogen) 34 mg/dL (9.8-20.1); Bilirubin, Total 0.3 mg/dL (0.2-1.2); CRP (Inflammatory) 7.54 mg/dL (= or < 0.5); Calc. Creatinine Clearance 0 mL/min (70-130); Calcium 9.8 mg/dL (7.8-10.44); Carbon Dioxide 30 mmol/L (23-31); Chloride 91 mmol/L (98-107); Estimated GFR 38; Globulin 3.4 g/dL (2.4-3.5); Glucose 150 mg/dL (83-110); Magnesium 1.8 mg/dL (1.6-2.6); Potassium 4.9 mmol/L (3.5-5.1); Protein, Total 6.8 g/dL (5.8-8.1); Sodium 131 mmol/L (136-145)
[2022-07-26 14:04] LABS: SARS-CoV-2 NAA Rapid Test Not Detected (NotDetected)
[2022-07-26 14:04] LABS: D-Dimer Test 3.25 *mcg/mL (0.27-0.43)
[2022-07-26] MEDS ORDERED: Senokot S 8.6-50 MG TAB PO PRN (16:09)
[2022-07-26] MEDS ORDERED: Lactated Ringer's 1,000 ML IV SCH (16:45)
[2022-07-26] MEDS ORDERED: Morphine 2 MG/ML VIAL SLOW IVP SCH (17:31)
[2022-07-26] MEDS ORDERED: Ondansetron ODT 4 MG TAB PO PRN (18:27)
[2022-07-26] MEDS ORDERED: Fluticasone Propionate Nasal Spray 16 gm Bottle NASAL PRN (18:27)
[2022-07-26] MEDS ORDERED: traMADol HCl 50 MG TAB PO PRN (18:27)
[2022-07-26] MEDS ORDERED: Lorazepam 0.5 MG TAB PO PRN (18:27)
[2022-07-26] MEDS ORDERED: Ipratropium/Albuterol 3 ML NEB NEB PRN (20:39)
[2022-07-26] MEDS ORDERED: Electrolyte Replacement Protocol 1 EACH FS SCH (20:45)
[2022-07-26] MEDS ORDERED: Atorvastatin Calcium 20 MG TAB PO SCH (21:00)
[2022-07-26] MEDS ORDERED: Carvedilol 25 MG TAB PO SCH (21:00)
[2022-07-26] MEDS ORDERED: Gabapentin 100 MG CAP PO SCH (21:00)
[2022-07-26] MEDS ORDERED: hydrALAZINE 25 MG TAB PO SCH (21:00)
[2022-07-26] MEDS ORDERED: Pantoprazole 40 MG GRANULES PACKET PO SCH (21:00)
[2022-07-26] MEDS ORDERED: NIFEdipine XL 60 MG TAB PO SCH (21:00)
[2022-07-26] MEDS ORDERED: Senokot S 8.6-50 MG TAB PO SCH (21:00)
[2022-07-26] MEDS ORDERED: Lansoprazole 15 MG/5 ML (BATCHED)UDCUP PO SCH (21:00)
[2022-07-27] MEDS ORDERED: Magnesium 2 GM/50 ML(in water) 2 GM in Premix Bag 1 BAG IVPB SCH (02:00)
[2022-07-27 04:08] VITALS: TEMP 97.6
[2022-07-27 05:26] VITALS: BMI 26.3
[2022-07-27] MEDS ORDERED: Mometasone 200 MCG/Formoterol 5 MCG 120 PUFF INHALER INH SCH (06:30)
[2022-07-27] MEDS ORDERED: Dronedarone HCl 400 MG TAB PO SCH (08:00)
[2022-07-27] MEDS ORDERED: Calcitriol 0.25 MCG CAP PO SCH (09:00)
[2022-07-27] MEDS ORDERED: Polyethylene Glycol 3350 17 GM Packet PO SCH (09:00)
[2022-07-27] MEDS ORDERED: Cholecalciferol 1,000 UNITS (25 MCG) TAB PO SCH (09:00)
[2022-07-27] MEDS ORDERED: Bupropion 150 MG XL TAB PO SCH (09:00)
[2022-07-27] MEDS ORDERED: Ascorbic Acid 500 mg Chewable Tablet PO SCH (09:00)
[2022-08-02] MEDS ORDERED: cloNIDine 0.1mg/24 Hour PATCH TD SCH (09:00)
== END 2022-07-27 05:54 | disposition expired | DRG 189 ==
LOC: ERS 12:40 → ERHOLD 15:09 → CCU 16:50
PROVIDERS: ADMIT Family Medicine; ATTEND Family Medicine
PROC: 5A09357 Assistance with Respiratory Ventilation, Less than 24 Consecutive Hours, Continuous Positive Airway Pressure (ICD-10-PCS; principal; 2022-07-26)
PROC: 4A133R1 Monitoring of Arterial Saturation, Peripheral, Percutaneous Approach (ICD-10-PCS; 2022-07-26)
DX: J96.21 Acute and chronic respiratory failure with hypoxia (principal); C34.91 Malignant neoplasm of unspecified part of right bronchus or lung; Z66 Do not resuscitate; Z51.5 Encounter for palliative care; Z20.822 Contact with and (suspected) exposure to COVID-19; E87.1 Hypo-osmolality and hyponatremia; Q60.0 Renal agenesis, unilateral; J90 Pleural effusion, not elsewhere classified; I12.9 Hypertensive chronic kidney disease with stage 1 through stage 4 chronic kidney disease, or unspecified chronic kidney disease; N18.30 Chronic kidney disease, stage 3 unspecified; F41.9 Anxiety disorder, unspecified; I25.10 Atherosclerotic heart disease of native coronary artery without angina pectoris; E78.5 Hyperlipidemia, unspecified; J96.22 Acute and chronic respiratory failure with hypercapnia; R94.31 Abnormal electrocardiogram [ECG] [EKG]; G89.3 Neoplasm related pain (acute) (chronic); E03.9 Hypothyroidism, unspecified; J45.909 Unspecified asthma, uncomplicated; Z88.6 Allergy status to analgesic agent; Z88.1 Allergy status to other antibiotic agents; Z88.0 Allergy status to penicillin; Z79.899 Other long term (current) drug therapy; Z95.1 Presence of aortocoronary bypass graft; Z86.73 Personal history of transient ischemic attack (TIA), and cerebral infarction without residual deficits; Z90.710 Acquired absence of both cervix and uterus; Z80.8 Family history of malignant neoplasm of other organs or systems; Z87.891 Personal history of nicotine dependence
CPT/HCPCS: 36415; 36600; 51702; 70470; 71045; 71275; 80053; 81003; 82805; 83605; 83735; 83880; 84439; 84443; 84481; 84484; 85025; 85379; 85610; 85730; 86140; 86850; 86900; 86901; 93005; 94660; J2272; J3475; J7120; U0002